=== PATIENT | female | born 1935 | race Caucasian/White ===

== ENCOUNTER → 2016-06-15 | Outpatient (CLI) | payer MEDICARE | END | disposition home or self-care (01) | LOC: LABWHC1 09:29 | PROVIDERS: ATTEND Psychiatry & Neurology Neurology | DX: G90.09 Other idiopathic peripheral autonomic neuropathy (principal) | CPT/HCPCS: 36415 ==

== ENCOUNTER → 2020-04-28 | Outpatient (CLI) | payer MEDICARE ==
--- NOTE | 2020-04-28 10:52 | CT ---
EXAMINATION TYPE: CT abdomen pelvis wo con DATE OF EXAM: 04/28/2020 HISTORY: low left side back pain CT DLP: 635 mGycm. Automated Exposure Control for Dose Reduction was Utilized. TECHNIQUE: CT scan of the abdomen and pelvis is performed without oral or IV contrast. COMPARISON: NONE FINDINGS: Within the limitations of a non-contrast study, the following observations are made. LUNG BASES: Epicardial pacer wires are present. Calcification at level of mitral valve. LIVER/GB: Dependent small stones and/or gallbladder sludge. No surrounding inflammatory change PANCREAS: No significant abnormality is seen. SPLEEN: No significant abnormality is seen. ADRENALS: No significant abnormality is seen. KIDNEYS: Cortical thinning in both kidneys with few scattered small simple appearing thin-walled cyst . Findings consistent with product of chronic medical renal disease. BOWEL: Small sized hiatal hernia. Prominent diverticulosis in the sigmoid colon with few additional s cattered colonic diverticula. There is wandering cecum into the anterior right mid abdomen terminal i leum noted coronal image 25 and axial image 56. No suspicious small or large bowel dilatation. GENITAL ORGANS: Scattered bilateral pelvic phleboliths. LYMPH NODES: No greater than 1cm abdominal or pelvic lymph nodes are appreciated. OSSEOUS STRUCTURES: Severe narrowing with subchondral cystic change and spurring at the pubic symphys is. Moderate narrowing and [id number] spurring of both hip joints. Demineralization is present. Exaggerated lumbar lordosis. Multilevel facet arthropathy greatest in the mid to lower lumbar spine. Greatest degree of spinal canal at the L4-L5 level due to disc herniation and facet arthropathy axia l image 64. OTHER: Mild to moderate calcified plaque of the aorta extends into branch vessels. IMPRESSION: Exaggerated lumbar lordosis with multilevel degenerative changes greatest at L4-L5 level. Other findings as noted above.
== END | disposition home or self-care (01) ==
LOC: RADCTMAIN 09:53
PROVIDERS: ATTEND Family Medicine
DX: N28.1 Cyst of kidney, acquired (principal); K44.9 Diaphragmatic hernia without obstruction or gangrene; K57.30 Diverticulosis of large intestine without perforation or abscess without bleeding; N28.89 Other specified disorders of kidney and ureter; I87.8 Other specified disorders of veins
CPT/HCPCS: 74176

== ENCOUNTER → 2020-11-05 | Outpatient (CLI) | payer MEDICARE ==
[2020-11-05 21:42] LABS: Hemoglobin A1C 4.8 % (4.0-6.0)
[2020-11-05 22:19] LABS: Protein, Total 6.1 g/dL (6.2-8.2)
[2020-11-09 11:16] LABS: Albumin 3.76 g/dL (3.80-4.90); Gamma Globulin 0.84 g/dL (0.70-1.50)
== END | disposition home or self-care (01) ==
LOC: LABWHC1 13:08
PROVIDERS: ATTEND Psychiatry & Neurology Neurology
DX: G62.9 Polyneuropathy, unspecified (principal); E16.2 Hypoglycemia, unspecified; Z79.899 Other long term (current) drug therapy
CPT/HCPCS: 36415; 83036; 84165; 86334

== ENCOUNTER 2020-11-10 10:23 | Inpatient (IN) | payer MEDICARE ==
[2020-11-10] MEDS ORDERED: ACETAMINOPHEN TAB 500 MG TAB PO STA (11:20)
[2020-11-10] MEDS ORDERED: LIDOCAINE 5% PATCH TOPICAL STA (11:22)
--- NOTE | 2020-11-10 11:36 | ED ---
Recheck HPI - General Chief Complaint: Recheck/Abnormal Lab/Rx Stated Complaint: elevated BP, Back pain Time Seen by Provider: 11/10/20 10:59 Source: patient Mode of arrival: ambulatory Limitations: no limitations - History of Present Illness Initial Comments: Patient is a 85-year-old female with past medical history remarkable for GERD, hyperlipidemia, aortic valve replacement who presents emergency department complaining of a 3 day history of worsening mid back pain between the shoulder blades with associate worsening hypertension. She describes the pain as a sharp sensation and has some radiculopathy around bilateral ribs. She states that over the last week she has been getting in and out of the truck that her children have brought as a visiting and lifting herself in. She associates the pain is possibly from that. She states the pain is worse with any form of movement or with pressure on her back. She is attempted take Tylenol to help with the pain with minimal relief. She last took Tylenol yesterday. She has any abdominal pain, nausea, vomiting she has no urinary complaints. She denies any weakness, numbness. She still able to ambulate. As a complication of her aortic valve replacement, she still has an incompletely healed sternum per patient's daughter and patient. She is no prior history of blood pressure. She has noticed over the last 2 days and the blood pressure has been elevated, and today it is the worst it has been. She also states she is in a significant amount of pain and states that this may be because of her elevated blood pressure this time. States this is not occurred before. She is no history of heart disease otherwise. She has any shortness of breath, fevers, chills, cough. She denies any lightheadedness or blurry vision. Patient presents after being sent by her PCP for evaluation of her new onset hypertension as well as mid back pain. - Related Data Home Medications Medication Instructions Recorded Confirmed Acetaminophen Tab [Tylenol] 650 mg PO Q6H PRN 11/10/20 11/10/20 Aspirin EC [Ecotrin Low Dose] 81 mg PO HS 11/10/20 11/10/20 Calcium Carbonate [Calcium] 600 mg PO HS 11/10/20 11/10/20 Cholecalciferol [Vitamin D3 (25 50 mcg PO HS 11/10/20 11/10/20 Mcg = 1000 Iu)] Docusate [Colace] 100 mg PO DAILY PRN 11/10/20 11/10/20 Fish Oil/Dha/Epa [Fish Oil 1,200 1 cap PO DAILY 11/10/20 11/10/20 mg Fish Oil] Gabapentin 600 mg PO HS 11/10/20 11/10/20 Gabapentin [Neurontin] 300 mg PO DAILY 11/10/20 11/10/20 Glucosam/Al-Msm1/C/Kenny/Bosw 1 tab PO DAILY 11/10/20 11/10/20 [Glucosamine-Chondroitin Tablet] Mirabegron [Myrbetriq] 25 mg PO DAILY 11/10/20 11/10/20 Multivit-Min/FA/Lycopen/Lutein 1 tab PO DAILY 11/10/20 11/10/20 [Centrum Silver Tablet] Omeprazole 20 mg PO DAILY 11/10/20 11/10/20 Polyethylene Glycol 3350 [Clearlax] 17 gm PO DAILY PRN 11/10/20 11/10/20 Simvastatin [Zocor] 20 mg PO HS 11/10/20 11/10/20 Vision Shield 1 tab PO BID 11/10/20 11/10/20 Vitamin B Complex 1 cap PO DAILY 11/10/20 11/10/20 Allergies Allergy/AdvReac Type Severity Reaction Status Date / Time Penicillins Allergy Rash/Hives Verified 11/10/20 12:06 Sulfa (Sulfonamide Allergy Rash/Hives Verified 11/10/20 12:06 Antibiotics) cortisone AdvReac flushing Verified 11/10/20 12:06 ibuprofen [From Motrin] AdvReac Nausea & Verified 11/10/20 12:06 Vomiting Review of Systems ROS Statement: Those systems with pertinent positive or pertinent negative responses have been documented in the HPI. Review of Systems: CONST: Denies fever EYES: Denies blurry vision ENT: Denies nasal congestion C/V: Denies Chest pain RESP: Denies shortness of breath GI: Denies abdominal pain : Denies dysuria SKIN: Denies rash. MSK: Endorses back pain, rib pain NEURO: Denies headache ROS Other: All systems not noted in ROS Statement are negative. Past Medical History Past Medical History: Hyperlipidemia History of Any Multi-Drug Resistant Organisms: None Reported Additional Past Surgical History / Comment(s): aortic valve replacement Past Psychological History: No Psychological Hx Reported Smoking Status: Never smoker Past Alcohol Use History: None Reported Past Drug Use History: None Reported General Exam - General Exam Comments Initial Comments: Constitutional: Blood pressure was 197/81, pulse was 71, respirations were 18, pulse oximetry was 97% on room air, temperature was 97.9. General: Appears in moderate distress secondary to mid back pain. HEAD: Normal with no signs of head trauma. EYES: PERRLA, EOMI, conjunctiva normal, no discharge. ENT: Hearing grossly intact, normal oropharynx. RESPIRATORY: Clear breath sounds bilaterally. No wheezes, rales, or rhonchi. C/V: Regular rate and rhythm. S1 and S2 auscultated, no edema, peripheral pulses 2+ and intact throughout and symmetric. ABD: Abd is soft, nontender, nondistended EXT: Normal range of motion of all 4 extremities. No obvious deformity. Patient does have some mid thoracic midline tenderness to palpation with some radicular symptoms around the ribs to the midaxillary line bilaterally. SKIN: No rashes or lesions observed on exposed skin. NEURO: Alert and oriented 4. No focal sensory or strength deficits. Cranial nerves 2 through 12 are intact. Limitations: no limitations Course Vital Signs 11/10/20 11/10/20 11/10/20 10:26 11:29 12:49 Temperature 97.9 F Pulse Rate 71 61 58 L Respiratory 18 18 18 Rate Blood Pressure 197/81 177/89 172/65 O2 Sat by Pulse 97 99 97 Oximetry 11/10/20 11/10/20 11/10/20 14:00 15:12 17:47 Temperature Pulse Rate 53 L 56 L 61 Respiratory 16 18 18 Rate Blood Pressure 161/54 146/63 156/66 O2 Sat by Pulse 97 100 95 Oximetry Medical Decision Making - Medical Decision Making Based on the patient's presentation and physical exam, I'm concerned for possible cardiac cause for her current symptoms, particularly an aortic di ssection. The patient is presenting with severe mid back pain with hypertension. She is uncertain if the hypertension resolved without back pain or prefaced it. Therefore we will obtain a cardiac workup including his quads, troponin, EKG and chest x-ray. We'll also obtain a urinalysis. We will obtain CT imaging of the aorta in the thorax and abdomen with runoff with concern for dissection, as well as reconstituted thoracic CT images without contrast. She will be connected to continuous cardiac monitoring while here in the emergency department. She requested that we attempt to control her pain per her blood pressure she has no history of hypertension in the past. I believe this is re asonable as this also intra-articular optic component to her pain could be musculoskeletal secondary to her recent exertions getting in and out of the family's vehicle. Therefore we'll provide her with lidocaine patch as well as Tylenol, and address her hypertension if it persists. She was in agreement with plan. EKG had no acute sensory ischemia was relatively unremarkable with a normal sinus rhythm and normal intervals. Patient's laboratory studies were remarkable for a normal troponin. Patient's urinalysis did reveal a contaminated catch. Laboratory studies otherwise unremarkable. Patient's chest x-ray revealed no acute cardiopulmonary process. Patient's thoracic spine CT revealed a mild superior endplate compression fracture T9 with small surrounding paraspinal hematoma. No evidence of bony retropulsion or instability. Patient's CTA thorax, abdomen, pelvis revealed no acute aortic aneurysm or dissection. I contacted orthopedics director of environmental services and spoke with the PA director of environmental services regarding the patient's imaging. He spoke with a spine doctor who stated the patient is stable for follow-up in clinic and that there will be no acute intervention at this time. They recommended a TLSO brace. On reevaluation the patient states that her pain is under control when she does not move. I did inform her the results of her laboratory studies and imaging. I explained to her that due to her age as well as difficulty moving around at this time, I'll leave it up to her whether or not she would like to remain in the hospital overnight until she can secure her brace. The patient discussed at great length with family regarding admission. In the meantime, I did provide the patient's daughter with a prescription for a TLSO brace which she took to [facility] to attempt to fill. However it will not be ready until tomorrow. After a lengthy discussion, the patient and her family decided that the specimen patient to remain overnight in observation admission for pain control. I was in agreement with this plan. Patient's PCP is Dr. Stanton who admits to [facility]. I spoke with the on-call physician over the phone who agreed to accept the patient to observation for pain control. Patient will therefore be admitted in fair condition for pain control for her T9 fracture. - Lab Data Result diagrams: 11/10/20 11:38 11/10/20 11:38 Lab Results 11/10/20 11/10/20 11/10/20 Range/Units 11:38 11:38 11:38 WBC 5.3 (3.8-10.6) k/uL RBC 4.05 (3.80-5.40) m/uL Hgb 12.7 (11.4-16.0) gm/dL Hct 35.9 (34.0-46.0) % MCV 88.6 (80.0-100.0) fL MCH 31.4 (25.0-35.0) pg MCHC 35.5 (31.0-37.0) g/dL RDW 13.2 (11.5-15.5) % Plt Count 194 (150-450) k/uL MPV 7.3 Neutrophils % 71 % Lymphocytes % 18 % Monocytes % 6 % Eosinophils % 3 % Basophils % 0 % Neutrophils # 3.7 (1.3-7.7) k/uL Lymphocytes # 1.0 (1.0-4.8) k/uL Monocytes # 0.3 (0-1.0) k/uL Eosinophils # 0.2 (0-0.7) k/uL Basophils # 0.0 (0-0.2) k/uL PT 9.9 (9.0-12.0) sec INR 0.9 (<1.2) APTT 23.4 (22.0-30.0) sec Sodium 140 (137-145) mmol/L Potassium 4.7 (3.5-5.1) mmol/L Chloride 107 (98-107) mmol/L Carbon Dioxide 28 (22-30) mmol/L Anion Gap 5 mmol/L BUN 23 H (7-17) mg/dL Creatinine 0.59 (0.52-1.04) mg/dL Est GFR (CKD-EPI)AfAm >90 (>60 ml/min/1.73 sqM) Est GFR (CKD-EPI)NonAf 85 (>60 ml/min/1.73 sqM) Glucose 98 (74-99) mg/dL Calcium 9.4 (8.4-10.2) mg/dL Magnesium 2.1 (1.6-2.3) mg/dL Total Bilirubin 0.6 (0.2-1.3) mg/dL AST 37 H (14-36) U/L ALT 17 (4-34) U/L Alkaline Phosphatase 57 (38-126) U/L Troponin I (0.000-0.034) ng/mL Total Protein 6.5 (6.3-8.2) g/dL Albumin 3.9 (3.5-5.0) g/dL Urine Color Urine Appearance (Clear) Urine pH (5.0-8.0) Ur Specific [place] (1.001-1.035) Urine Protein (Negative) Urine Glucose (UA) (Negative) Urine Ketones (Negative) Urine Blood (Negative) Urine Nitrite (Negative) Urine Bilirubin (Negative) Urine Urobilinogen (<2.0) mg/dL Ur Leukocyte Esterase (Negative) Urine RBC (0-5) /hpf Urine WBC (0-5) /hpf Ur Squamous Epith Cells (0-4) /hpf 11/10/20 11/10/20 Range/Units 11:38 11:50 WBC (3.8-10.6) k/uL RBC (3.80-5.40) m/uL Hgb (11.4-16.0) gm/dL Hct (34.0-46.0) % MCV (80.0-100.0) fL MCH (25.0-35.0) pg MCHC (31.0-37.0) g/dL RDW (11.5-15.5) % Plt Count (150-450) k/uL MPV Neutrophils % % Lymphocytes % % Monocytes % % Eosinophils % % Basophils % % Neutrophils # (1.3-7.7) k/uL Lymphocytes # (1.0-4.8) k/uL Monocytes # (0-1.0) k/uL Eosinophils # (0-0.7) k/uL Basophils # (0-0.2) k/uL PT (9.0-12.0) sec INR (<1.2) APTT (22.0-30.0) sec Sodium (137-145) mmol/L Potassium (3.5-5.1) mmol/L Chloride (98-107) mmol/L Carbon Dioxide (22-30) mmol/L Anion Gap mmol/L BUN (7-17) mg/dL Creatinine (0.52-1.04) mg/dL Est GFR (CKD-EPI)AfAm (>60 ml/min/1.73 sqM) Est GFR (CKD-EPI)NonAf (>60 ml/min/1.73 sqM) Glucose (74-99) mg/dL Calcium (8.4-10.2) mg/dL Magnesium (1.6-2.3) mg/dL Total Bilirubin (0.2-1.3) mg/dL AST (14-36) U/L ALT (4-34) U/L Alkaline Phosphatase (38-126) U/L Troponin I <0.012 (0.000-0.034) ng/mL Total Protein (6.3-8.2) g/dL Albumin (3.5-5.0) g/dL Urine Color Yellow Urine Appearance Clear (Clear) Urine pH 8.0 (5.0-8.0) Ur Specific [place] 1.016 (1.001-1.035) Urine Protein Negative (Negative) Urine Glucose (UA) Negative (Negative) Urine Ketones Negative (Negative) Urine Blood Negative (Negative) Urine Nitrite Negative (Negative) Urine Bilirubin Negative (Negative) Urine Urobilinogen <2.0 (<2.0) mg/dL Ur Leukocyte Esterase Small H (Negative) Urine RBC 2 (0-5) /hpf Urine WBC 8 H (0-5) /hpf Ur Squamous Epith Cells 1 (0-4) /hpf - EKG Data -: EKG Interpreted by Me EKG Comments: 12-lead Electrocardiogram Interpretation Note EKG was reviewed and interpreted by myself. 12-lead ECG performed at 1037 and was interpreted by me at 1140 and was provided to me by nursing and is interpreted by me as revealing normal sinus rhythm at a rate of 63 beats per minute. [place] is normal. WA intervals 140 ms, QRS duration 74 ms, QTc is 437 ms.. There are isolated isoelectric T waves in III, however otherwise ST segment and T waves are unremarkable.. R wave progression across the precordium was satisfactory. By my interpretation this EKG is non-diagnostic for acute ischemia. Disposition Clinical Impression: T9 vertebral fracture Disposition: ADMITTED IP TO THIS [facility] Condition: Fair Referrals: Yessy Stanton MD [Primary Care Provider] - 1-2 days Mario Jim DO [Doctor of Osteopathic Medicine] - 1-2 days Decision to Admit Reason: Admit from [facility]
[2020-11-10 12:11] LABS: Appearance,Urine Clear (Clear); Bilirubin,Urine Negative (Negative); Blood,Urine Negative (Negative); Color,Urine Yellow; Glucose,Urine (UA) Negative (Negative); Ketones,Urine Negative (Negative); Leukocyte Esterase,Urine Small (Negative); Nitrite,Urine Negative (Negative); Protein,Urine Negative (Negative); RBC,Urine 2 /hpf (0-5); Specific Gravity,Urine 1.016 (1.001-1.035); Squamous Epithelial Cell,Urine 1 /hpf (0-4); Urobilinogen,Urine <2.0 mg/dL (<2.0); WBC,Urine 8 /hpf (0-5)
[2020-11-10 12:17] LABS: INR 0.9 (<1.2); Partial Thromboplastin Time 23.4 sec (22.0-30.0); Prothrombin Time 9.9 sec (9.0-12.0)
[2020-11-10 12:22] LABS: Basophils % (A) 0 %; Eosinophils # (A) 0.2 k/uL (0-0.7); Eosinophils % (A) 3 %; HCT 35.9 % (34.0-46.0); HGB 12.7 gm/dL (11.4-16.0); Lymphocytes % (A) 18 %; MCH 31.4 pg (25.0-35.0); MCHC 35.5 g/dL (31.0-37.0); MCV 88.6 fL (80.0-100.0); Mean Platelet Volume 7.3; Monocytes # (A) 0.3 k/uL (0-1.0); Monocytes % (A) 6 %; Neutrophils # (A) 3.7 k/uL (1.3-7.7); Neutrophils % (A) 71 %; Platelet Count 194 k/uL (150-450); RBC 4.05 m/uL (3.80-5.40); RDW 13.2 % (11.5-15.5); WBC 5.3 k/uL (3.8-10.6)
[2020-11-10 12:23] LABS: ALT 17 U/L (4-34); African American GFR (CKD) >90 (>60 ml/min/1.73 sqM); Albumin 3.9 g/dL (3.5-5.0); Anion Gap 5 mmol/L; Blood Urea Nitrogen 23 mg/dL (7-17); Calcium 9.4 mg/dL (8.4-10.2); Carbon Dioxide 28 mmol/L (22-30); Chloride 107 mmol/L (98-107); Glucose 98 mg/dL (74-99); Non-African American GFR(CKD) 85 (>60 ml/min/1.73 sqM); Sodium 140 mmol/L (137-145); Total Bilirubin 0.6 mg/dL (0.2-1.3); Total Protein 6.5 g/dL (6.3-8.2)
[2020-11-10 12:27] LABS: AST 37 U/L (14-36); Magnesium 2.1 mg/dL (1.6-2.3); Potassium 4.7 mmol/L (3.5-5.1)
[2020-11-10 12:28] LABS: Alkaline Phosphatase 57 U/L (38-126)
--- NOTE | 2020-11-10 12:37 | XR ---
EXAMINATION TYPE: XR chest 1V portable DATE OF EXAM: 11/10/2020 COMPARISON: NONE HISTORY: Chest pain TECHNIQUE: Single frontal view of the chest is obtained. FINDINGS: There is no focal air space opacity, pleural effusion, or pneumothorax seen. The cardiac silhouette size is within normal limits. The osseous structures are intact. IMPRESSION: No acute process.
--- NOTE | 2020-11-10 12:41 | CT ---
EXAMINATION TYPE: CT thoracic spine wo con DATE OF EXAM: 11/10/2020 COMPARISON: None HISTORY: thoracic spine pain CT DLP: 1119.1 mGycm Automated exposure control for dose reduction was used. Unenhanced CT of the thoracic spine was submi tted. Bone and soft tissue window settings are reviewed. FINDINGS: There is minimal loss of vertebral body height involving the superior endplate of T9 with a small rory rounding paraspinal hematoma compatible with an acute mild superior endplate compression fracture. No evidence for instability. No additional fractures are seen. Mild degenerative disc space narrowing i s seen throughout. Mild ventral spondylosis. IMPRESSION: MILD SUPERIOR ENDPLATE COMPRESSION FRACTURE OF T9 WITH SMALL SURROUNDING PARASPINAL HEMATOMA. NO EVID ENCE FOR BONY RETROPULSION OR INSTABILITY.
--- NOTE | 2020-11-10 13:00 | CT ---
EXAMINATION TYPE: CT angio thor/abd pel aorta DATE OF EXAM: 11/10/2020 COMPARISON: None HISTORY: thoracic spine pain, suspect aortic dissection CT DLP: 1119.1 mGycm CONTRAST: CTA thoracic and abdominal aorta with 3-D reconstruction is performed and without and with IV Contras t, patient injected with 100 mL of Isovue 370. Contrast CTA of the thoracic and abdominal aorta was performed from the lung apex through the base of the pelvis. 3-D reconstruction imaging obtained at a separate workstation. CT Chest: THORACIC AORTA: There is no evidence for aneurysm. No dissection or mediastinal hematoma. Mild ath eromatous changes are seen. LUNGS: The lungs are clear and free of infiltrate or atelectasis. No pulmonary nodule or mass is det ected. No pleural effusion or CT evidence of interstitial lung disease. MEDIASTINUM: There is evidence of thyroid goiter with substernal extension. The heart is not enlarged . No evidence for mediastinal mass or adenopathy. HILAR STRUCTURES: No evidence for mass. No hilar adenopathy is appreciated. OTHER: No significant abnormality. CONTRAST CT ABDOMEN AND PELVIS ABDOMENAL AORTA: No evidence for abdominal aortic aneurysm. No dissection. Iliac vessels are symmet mindy and patent. LIVER/GB- No significant abnormality is seen. Small gallstones noted. PANCREAS- No significant abnormality is seen. SPLEEN- No significant abnormality is seen. ADRENALS- No significant abnormality is seen. KIDNEYS/BLADDER- No significant abnormality is seen. Renal cystic changes seen. BOWEL- No Significant abnormality GENITAL ORGANS: No gross abnormality seen. Pessary is in place. LYMPH NODES- No greater than 1cm abdominal or pelvic lymph nodes areappreciated. OSSEOUS STRUCTURES- No significant abnormality is seen. OTHER- No significant abnormality is seen. IMPRESSION- Atheromatous changes of the aorta without evidence for aneurysm or dissection.
[2020-11-10] MEDS ORDERED: ONDANSETRON 4 MG/2 ML VIAL IVP PRN (17:29)
[2020-11-10] MEDS ORDERED: HYDROcodone/APAP 5-325MG 1 EACH TAB PO PRN (17:29)
[2020-11-10] MEDS ORDERED: DOCUSATE 100 MG CAP PO PRN (17:35)
[2020-11-10] MEDS: ACETAMINOPHEN TAB 325 MG TAB PO PRN (18:00)
[2020-11-10] MEDS ORDERED: polyethylene glycoL 3350 17 GM POWD.PACK PO PRN (18:01)
--- NOTE | 2020-11-10 18:11 | P.HPIM ---
History of Present Illness H&P Date: 11/10/20 Chief Complaint: Back pain This is a 85-year-old female with past medical history noted below who presented to the emergency room with mid back pain. Patient said that her symptoms started few days ago and pain is mostly in between her shoulder blades radiating to the right. Patient said that the pain is sharp and started 3 days ago when she was trying to reach her arm up to get into her daughter truck. Patient denies any fall or trauma. No numbness or tingling anywhere. No weakness. She was brought into the emergency room for further evaluation. Patient said that she was monitoring her blood pressure at home and for the past few days her blood pressure is been slightly elevated. She does not take any blood pressure medications at home. No history of hypertension. Her daughter told me that she had a history of aortic valve replacement years ago. Patient was evaluated in the ER and will be placed on observation for further management of her medical p roblems noted below. Review of Systems Review of system: 14 points review of systems were obtained and were negative except to what were mentioned in the HPI. Past Medical History Past Medical History: Hyperlipidemia History of Any Multi-Drug Resistant Organisms: None Reported Additional Past Surgical History / Comment(s): aortic valve replacement Past Psychological History: No Psychological Hx Reported Smoking Status: Never smoker Past Alcohol Use History: None Reported Past Drug Use History: None Reported Medications and Allergies Home Medications Medication Instructions Recorded Confirmed Type Acetaminophen Tab [Tylenol] 650 mg PO Q6H PRN 11/10/20 11/10/20 History Aspirin EC [Ecotrin Low Dose] 81 mg PO HS 11/10/20 11/10/20 History Calcium Carbonate [Calcium] 600 mg PO HS 11/10/20 11/10/20 History Cholecalciferol [Vitamin D3 (25 50 mcg PO HS 11/10/20 11/10/20 History Mcg = 1000 Iu)] Docusate [Colace] 100 mg PO DAILY PRN 11/10/20 11/10/20 History Fish Oil/Dha/Epa [Fish Oil 1,200 1 cap PO DAILY 11/10/20 11/10/20 History mg Fish Oil] Gabapentin 600 mg PO HS 11/10/20 11/10/20 History Gabapentin [Neurontin] 300 mg PO DAILY 11/10/20 11/10/20 History Glucosam/Al-Msm1/C/Kenny/Bosw 1 tab PO DAILY 11/10/20 11/10/20 History [Glucosamine-Chondroitin Tablet] Mirabegron [Myrbetriq] 25 mg PO DAILY 11/10/20 11/10/20 History Multivit-Min/FA/Lycopen/Lutein 1 tab PO DAILY 11/10/20 11/10/20 History [Centrum Silver Tablet] Omeprazole 20 mg PO DAILY 11/10/20 11/10/20 History Polyethylene Glycol 3350 [Clearlax] 17 gm PO DAILY PRN 11/10/20 11/10/20 History Simvastatin [Zocor] 20 mg PO HS 11/10/20 11/10/20 History Vision Shield 1 tab PO BID 11/10/20 11/10/20 History Vitamin B Complex 1 cap PO DAILY 11/10/20 11/10/20 History Allergies Allergy/AdvReac Type Severity Reaction Status Date / Time Penicillins Allergy Rash/Hives Verified 11/10/20 12:06 Sulfa (Sulfonamide Allergy Rash/Hives Verified 11/10/20 12:06 Antibiotics) cortisone AdvReac flushing Verified 11/10/20 12:06 ibuprofen [From Motrin] AdvReac Nausea & Verified 11/10/20 12:06 Vomiting Physical Exam Vitals: Vital Signs Temp Pulse Resp BP Pulse Ox 11/10/20 17:47 61 18 156/66 95 11/10/20 15:12 56 L 18 146/63 100 11/10/20 14:00 53 L 16 161/54 97 11/10/20 12:49 58 L 18 172/65 97 11/10/20 11:29 61 18 177/89 99 11/10/20 10:26 97.9 F 71 18 197/81 97 Intake and Output 11/10/20 11/10/20 11/10/20 06:59 14:59 22:59 Other: Weight 62.142 kg General: The patient is awake and alert, in no distress Eye: there is normal conjunctiva bilaterally. Neck: The neck is supple, there is no JVD. Cardiovascular: Normal S1-S2, no S3-S4, no murmurs. Respiratory: Lungs clear to auscultation bilaterally Gastrointestinal: Abdomen is soft, nontender Musculoskeletal: There is no pedal edema. Neurological:. Speech is normal. Skin: Skin is warm and dry Results CBC & Chem 7: 11/10/20 11:38 11/10/20 11:38 Labs: Abnormal Lab Results - Last 24 Hours (Table) 11/10/20 11/10/20 Range/Units 11:38 11:50 BUN 23 H (7-17) mg/dL AST 37 H (14-36) U/L Ur Leukocyte Esterase Small H (Negative) Urine WBC 8 H (0-5) /hpf Assessment and Plan Assessment: 1. Compression fraction of T-9 with a small surrounding paraspinal hematoma, case discussed with orthopedic surgery over the phone by ER physician. Plan to follow up outpatient. TLSO brace ordered. Pain well controlled with Tylenol. 2. Elevated blood pressure, most likely secondary to pain. We will continue to monitor closely. 3. Chronic medical problems: History of aortic valve replacement, mild dementia/cognitive impairment, GERD Patient will be placed in observation awaiting brace fitting. She is not comfortable to go home. I will consult PT/OT. Anticipate discharge tomorrow.
[2020-11-10] MEDS ORDERED: GABAPENTIN 300 MG CAP PO SCH (21:00)
[2020-11-10] MEDS ORDERED: ASPIRIN 81 MG PO SCH (21:00)
[2020-11-10] MEDS ORDERED: ATORVASTATIN 10 MG TAB PO SCH (21:00)
[2020-11-10] MEDS: HEPARIN SODIUM,PORCINE/PF 5,000 UNIT/0.5 ML SYRINGE SQ SCH (21:49)
[2020-11-11] MEDS: ACETAMINOPHEN TAB 325 MG TAB PO PRN ×3 (01:43→14:10)
[2020-11-11] MEDS ORDERED: PANTOPRAZOLE 40 MG TABLET PO SCH (07:30)
[2020-11-11 07:53] VITALS: RESP 16
[2020-11-11] MEDS: HEPARIN SODIUM,PORCINE/PF 5,000 UNIT/0.5 ML SYRINGE SQ SCH (08:02)
[2020-11-11] MEDS ORDERED: Mirabegron [Myrbetriq] PO SCH (09:00)
[2020-11-11] MEDS ORDERED: GABAPENTIN 300 MG CAP PO SCH (09:00)
[2020-11-11] MEDS ORDERED: LIDOCAINE 5% PATCH TOPICAL SCH (11:00)
--- NOTE | 2020-11-11 13:52 | P.DS ---
Providers Date of admission: 11/10/20 17:59 Expected date of discharge: 11/11/20 Attending physician: Curtis Valero Primary care physician: Yessy Stanton [facility] Course: This is a 85-year-old female with past medical history noted below who presented to the emergency room with mid back pain. Patient was evaluated in the ER and placed on observation for further management of her medical problems noted below. 1. Compression fraction of T-9 with a small surrounding paraspinal hematoma, case discussed with orthopedic surgery over the phone by ER physician. Plan to follow up outpatient. TLSO brace ordered. Pain well controlled with Tylenol. 2. Elevated blood pressure on presentation now back to normal range: most likely secondary to pain. 3. Chronic medical problems: History of aortic valve replacement, mild dementia/cognitive impairment, GERD Patient will be discharged home in a stable condition. She will follow-up with orthopedic surgery as directed. Patient Condition at Discharge: Fair Plan - Discharge Summary Discharge Rx Participant: No New Discharge Prescriptions: Continue Simvastatin [Zocor] 20 mg PO HS Cholecalciferol [Vitamin D3 (25 Mcg = 1000 Iu)] 50 mcg PO HS Calcium Carbonate [Calcium] 600 mg PO HS Vitamin B Complex 1 cap PO DAILY Glucosam/Al-Msm1/C/Kenny/Bosw [Glucosamine-Chondroitin Tablet] 1 tab PO DAILY Fish Oil/Dha/Epa [Fish Oil 1,200 mg Fish Oil] 1 cap PO DAILY Vision Shield 1 tab PO BID Gabapentin [Neurontin] 300 mg PO DAILY Acetaminophen Tab [Tylenol] 650 mg PO Q6H PRN PRN Reason: Fever And/ Or Pain Polyethylene Glycol 3350 [Clearlax] 17 gm PO DAILY PRN PRN Reason: Constipation Docusate [Colace] 100 mg PO DAILY PRN PRN Reason: Constipation Aspirin EC [Ecotrin Low Dose] 81 mg PO HS Multivit-Min/FA/Lycopen/Lutein [Centrum Silver Tablet] 1 tab PO DAILY Omeprazole 20 mg PO DAILY Gabapentin 600 mg PO HS Mirabegron [Myrbetriq] 25 mg PO DAILY Discharge Medication List Acetaminophen Tab [Tylenol] 650 mg PO Q6H PRN 11/10/20 [History] Aspirin EC [Ecotrin Low Dose] 81 mg PO HS 11/10/20 [History] Calcium Carbonate [Calcium] 600 mg PO HS 11/10/20 [History] Cholecalciferol [Vitamin D3 (25 Mcg = 1000 Iu)] 50 mcg PO HS 11/10/20 [History] Docusate [Colace] 100 mg PO DAILY PRN 11/10/20 [History] Fish Oil/Dha/Epa [Fish Oil 1,200 mg Fish Oil] 1 cap PO DAILY 11/10/20 [History] Gabapentin 600 mg PO HS 11/10/20 [History] Gabapentin [Neurontin] 300 mg PO DAILY 11/10/20 [History] Glucosam/Al-Msm1/C/Kenny/Bosw [Glucosamine-Chondroitin Tablet] 1 tab PO DAILY 11/10/20 [History] Mirabegron [Myrbetriq] 25 mg PO DAILY 11/10/20 [History] Multivit-Min/FA/Lycopen/Lutein [Centrum Silver Tablet] 1 tab PO DAILY 11/10/20 [History] Omeprazole 20 mg PO DAILY 11/10/20 [History] Polyethylene Glycol 3350 [Clearlax] 17 gm PO DAILY PRN 11/10/20 [History] Simvastatin [Zocor] 20 mg PO HS 11/10/20 [History] Vision Shield 1 tab PO BID 11/10/20 [History] Vitamin B Complex 1 cap PO DAILY 11/10/20 [History] Follow up Appointment(s)/Referral(s): Mario Jim DO [Doctor of Osteopathic Medicine] - 1-2 days Yessy Stanton MD [Primary Care Provider] - 1-2 days Discharge Disposition: HOME SELF-CARE
[2020-11-11 14:36] VITALS: BP 151/77; PULSE 71; TEMP 98.1
== END 2020-11-11 17:39 | disposition home or self-care (01) | DRG 544 ==
LOC: EC 10:23 → 4SSUR 17:59
PROVIDERS: ADMIT Internal Medicine; ATTEND Internal Medicine
DX: M48.54XA Collapsed vertebra, not elsewhere classified, thoracic region, initial encounter for fracture (principal); E78.5 Hyperlipidemia, unspecified; I10 Essential (primary) hypertension; K21.9 Gastro-esophageal reflux disease without esophagitis; R41.89 Other symptoms and signs involving cognitive functions and awareness; Z95.2 Presence of prosthetic heart valve; Z79.899 Other long term (current) drug therapy; F03.90 Unspecified dementia, unspecified severity, without behavioral disturbance, psychotic disturbance, mood disturbance, and anxiety; M54.10 Radiculopathy, site unspecified; Z20.822 Contact with and (suspected) exposure to COVID-19
CPT/HCPCS: 36415; 71045; 71275; 72128; 74174; 80053; 81001; 83735; 84484; 85025; 85610; 85730; 87635; 93005; 94760; 99285

== ENCOUNTER → 2020-12-09 | Day surgery (SDC) | payer MEDICARE ==
[2020-12-08 12:05] VITALS: BMI 25.9
[~2020-12-09] MED LIST: ACETAMINOPHEN TAB 500 MG TAB PO PRN; BUPIVACAINE (PF) 0.5% 30 ML VIAL SQ ONE; LACTATED RINGERS 1,000 ML IV ONE; LIDOCAINE 1% INJ 10MG/ML (20 ML MDV) ONE; LIDOCAINE 1%-EPI 1:100,000 20 ML VIAL SQ ONE; ONDANSETRON 4 MG/2 ML VIAL IVP PRN; PROPOFOL 10 MG/ML 20 ML VIAL IV ONE; SUCCINYLCHOLINE CHLORIDE 100 MG/5 ML SYR IV ONE; ePHEDrine SULFATE/0.9% NACL/PF 50 MG/5 ML SYRINGE IV ONE; fentaNYL (PF) 50 MCG/ML 2 ML AMP ONE
--- NOTE | 2020-12-09 12:10 | P.HPOR ---
History of Present Illness H&P Date: 12/07/20 Chief Complaint: Back pain HPI: Pt presents for follow up on her T9 VCF. She is wearing TLSO. She continues to have a lot of pain when she is up and about. When she is seated her pain is better, but not completely gone. She states it is difficult to perform her ADLs secondary to her pain. She denies any f c/sob/cp. She denies any weakness in legs she denies any bowel or bladder issues. She continues to have pain with palpation of her back as well as when she rests on it. HISTORY: Subjective: This 85 year old female presents with mid back pain. 1 week ago she was getting in and out of a truck a lot and somewhat jumping to the ground. This caused a lot of jarring on her legs and back and she ended up having severe back pain after one of the jumps. She went to ED and was found to have a T9 VCF. She was treated in a TLSO and sent home. Since then she has been doing well. She states she still has back pain but that it is better that originally. She feels the brace helps her. She also has some rib pain around the same area. She is able to ambulate independenly. She states no bowel or bladder issues. No perineal numbness/tingling. The patients' past social, medical, family, surgical history, as well as review of systems, have been reviewed. Please refer to the Neurosurgery History and Physical form that has been scanned in to our electronic medical record system. Review of Systems 14 points review of systems completed and as stated in HPI, all other systems reviewed are negative. Past Medical History Past Medical History: Hyperlipidemia, Musculoskeletal Disorder Additional Past Medical History / Comment(s): aortic valve replacement (pig valve size 19), sinus drainage frequently, papilloma right sinus cavity, recent hospitalization due to compression fx. & elevated BP which was due to pain, also a rib fx. on right side History of Any Multi-Drug Resistant Organisms: None Reported Past Surgical History: Appendectomy, Cardiac Valve Replacement, Hernia Repair, Orthopedic Surgery, Tubal Ligation Additional Past Surgical History / Comment(s): aortic valve replacement 2017, lt knee, rt ankle x3, carpal tunnel bilateral wrists, sinus surg. x2 Past Anesthesia/Blood Transfusion Reactions: No Reported Reaction Smoking Status: Never smoker - Past Family History Father Additional Family Medical History / Comment(s): emphysema Mother Additional Family Medical History / Comment(s): alzheimers Medications and Allergies Home Medications Medication Instructions Recorded Confirmed Type Acetaminophen Tab [Tylenol] 650 mg PO Q6H PRN 11/10/20 12/08/20 History Aspirin EC [Ecotrin Low Dose] 81 mg PO HS 11/10/20 12/08/20 History Calcium Carbonate [Calcium] 600 mg PO HS 11/10/20 12/08/20 History Cholecalciferol [Vitamin D3 (25 50 mcg PO HS 11/10/20 12/08/20 History Mcg = 1000 Iu)] Fish Oil/Dha/Epa [Fish Oil 1,200 1 cap PO DAILY 11/10/20 12/08/20 History mg Fish Oil] Gabapentin 600 mg PO HS 11/10/20 12/08/20 History Gabapentin [Neurontin] 300 mg PO DAILY 11/10/20 12/08/20 History Glucosam/Al-Msm1/C/Kenny/Bosw 1 tab PO DAILY 11/10/20 12/08/20 History [Glucosamine-Chondroitin Tablet] Multivit-Min/FA/Lycopen/Lutein 1 tab PO DAILY 11/10/20 12/08/20 History [Centrum Silver Tablet] Omeprazole 20 mg PO DAILY 11/10/20 12/08/20 History Polyethylene Glycol 3350 [Clearlax] 17 gm PO DAILY PRN 11/10/20 12/08/20 History Simvastatin [Zocor] 20 mg PO HS 11/10/20 12/08/20 History Vision Shield 1 tab PO BID 11/10/20 12/08/20 History Vitamin B Complex 1 cap PO DAILY 11/10/20 12/08/20 History Lidocaine 5% Patch [Lidoderm 5% 1 patch TOPICAL DAILY #30 patch 11/11/20 12/08/20 Rx Patch] Allergies Allergy/AdvReac Type Severity Reaction Status Date / Time Penicillins Allergy Rash/Hives Verified 12/08/20 11:05 Sulfa (Sulfonamide Allergy Rash/Hives Verified 12/08/20 11:05 Antibiotics) cortisone AdvReac flushing Verified 12/08/20 11:05 ibuprofen [From Motrin] AdvReac Nausea & Verified 12/08/20 11:05 Vomiting Physical Examination Osteopathic Statement: *. No significant issues noted on an osteopathic structural exam other than those noted in the History and Physical/Consult. General: Awake, alert, appropriate for age, in no acute distress. HEENT: No unusual neck masses around region of lateral neck triangle, thyroid, supraclavicular groove Heart: Regular rate and rhythm, normal S1, S2 and no murmur/gallop. Lungs: Clear to auscultation bilaterally with no use of accessory muscles. Extremities: Skin warm and dry without acute lesions, coloration, temperature, skin intact, no tenderness or erythema Integument: Hairy patches: Absent Dorsal skin dimples: Absent Cafe au lait spots: Absent Palpation: Please see Pain drawing on Intake sheet for further detail. Midline spinal tenderness: yes lumbar E6 Paralumbar tenderness: No E6 Parathoracic tenderness: No E6 Buttocks tenderness: No E6 Special findings: She has positive ballotment over the T9 area and TTP of the paraspinal region. POSTURAL and MUSCULO-SKELETAL EVALUATION: Coronal Balance: Neutral Recumbent testing: Patient is able to lay flat on back Sagittal Balance: Neutral Shoulder Profile: level Pelvic Girdle: level Neck ROM: Unrestricted Lumbar ROM: Unrestricted Shoulder ROM: Symmetric in abduction, ER/IR Hip ROM: Symmetric in abduction, adduction, ER/IR Knee ROM: Symmetric and intact in Flexion / extension Hands: Normal Feet: Normal VASCULAR STATUS : LEFT RIGHT Wrist Pulses intact intact Pedal Pulses (Dors. pedis & post.tibialis) intact intact Color normal normal Edema Absent Absent NEUROLOGIC EXAMINATION: Mental Status: Awake and alert, fully oriented, with normal attention, concentration and memory, and fluent, appropriate speech. Cranial Nerves: I: Olfactory not tested. II: Visual acuity normal, no visual field deficit noted with confrontation. III,IV: Normal pupillary reflexes & intact extraocular movements without nystagmus. V,: Intact symmetrical facial sensation. VII: Intact symmetrical facial motor movement VIII: Hearing intact. IX,X: Intact gag, swallow, & normal voice. XI: Sternocleidomastoid, trapezius function intact. XII: Tongue midline with normal movements. L'hermitte's Sign: Negative / absent Spurling'Sign: Absent bilaterally. Cubital percussion test: Absent bilaterally. Chikis-Tinel sign - Carpal region: Absent bilaterally. Straight Leg Raising: Absent bilaterally. Crossed straight leg raise: negative MOTOR EXAM (0-5/5, N/T) STRENGTH RIGHT LEFT Shoulder Abd (not part of the BROOKE score) 5 5 Elbow Flexors 5 5 Elbow Extensor 5 5 Wrist Dorsiflexors 5 5 Finger Abductor 5 5 Research Program Internship 5 5 Hip Flexor (Not part of BROOKE Motor score) 5 5 Knee Flexor 5 5 Knee Extensor 5 5 Ankle dorsiflexor 5 5 Ankle plantarflexion 5 5 Extensor hallucis 5 5 REFLEXES(0-4/2, NT) RIGHT LEFT Upper Extremities 2 2 Lower Extremities 2 2 Pathological Reflexes RIGHT LEFT Garrett's Absent Absent Clonus Absent Absent # Indicates mechanical impairment Muscle appearance: Normal Rectal Tone: Deferred Sensory system (0-4, N/T) Test type RU GRACIELA RL LL Joint-Position 2 2 2 2 Vibration 2 2 2 2 Pain & LT sense 2 2 2 2 Dermatomal Deficit: none none none none Gait and Functional Evaluation: Ambulatory aids: Independent Romberg's test: Intact bilaterally Toe heel walk / heel-toe walk intact while maintaining satisfactory balance? yes Squatting/straightening w/o assistance to a min of 60 degree knee flexion? yes Single leg stance: intact Trendelenburg sign negative bilaterally Hand and finger dexterity intact bilaterally? yes Disdiadochokinesis examination negative bilaterally? yes Results CT of the thoracic and lumbar spine are reviewed and discussed demonstrates T9 vertebral compression fracture which is acute in nature there is 15-20% anterior wedging which is noted. There is no other fractures or dislocation noted there is acute kyphosis in this area. XRAY: Xray today of the T spine shows some interval progression of VCF deformity and wedging of T9, however not severe. Ct from the ED shows the original fracture which is an A2 type fracture. No other fractures or dislocations noted. Some kyphosis at the segment. No other fractures. New Xrays today show progression of the compression of T9 with increased wedging. There is about 20% height loss which has progressed from previous films. There is no evidence of instability. There area no other fractures noted. Osteoporosis/osteopenia noted. Assessment and Plan Assessment: 1.T9 VCF 2. Failed conservative measures Plan: 1.Schedule for T9 kyphoplasty due to progression of compression and continued pain Cont with TLSO at this time as well Surgical Procedure Risk Review Juanisjaswinder Ceja is a 85 year old female presenting for evaluation of sudden onset of Mid back pain after several impact activities cuasing a T9 VCF. It was my pleasure to have seen and examined Ms. Ceja. In our visit today we have had a chance to go over subjective complaints, physical examination findings and treatments, including the natural course history without intervention and various interventional options. The imaging demonstrates T9 VCF with interval progression of compression on xray since previous visit . On physical exam, Ms. Ceja demonstrates Continued back pain, ballotment and pain with ambulation . I explained to the patient that as her condition progresses it could cause Continued pain, progression of the compression and further issues related . At this time, based on the patients imaging and physical exam, I recommend surgery in the form or a: T9 kyphoplasty . I discussed the risk and benefits of this procedure at length with Ms. Ceja. The patient agreed to consider pursuing the procedure mentioned above. Plan: 1. T9 kyphoplasty 2. Follow up with PCP for surgical clearance 3. Review of surgical risks and benefits as well as an educational packet on the proposed surgical procedure. Risks: All surgical procedures come with inherent risks, including those related to positioning, anesthesia, intraoperative findings, and postoperative complications. It is important to understand that surgery does not come with any guarantee of a successful outcome as complications and adverse events are always possible. The patient was given a handout in office today discussing the surgical procedure and risks associated with the intervention, both of which were discussed with the patient. These risks include but are not limited to the following: ? Experiencing same, different or even worse symptoms in back, neck, arms, or legs compared to before surgery. ? Requiring further surgery or other forms of treatment presently or at some time in the future at same or other levels of the intended spine surgery. ? On an extreme but fortunately relatively rare basis severe complication such as blindness, stroke, heart attack, temporary and/or permanent nerve injury, paralysis, coma, or may occur, sometimes without known explanation. ? Surgical complications may include but are not limited to risk of infection, fluid accumulation in the surgical dissection site, including a seroma or hematoma, that requires additional surgery, wound drainage, bleeding, new numbness or weakness, vision changes/loss, spinal fluid leakage, non-healing and/or infected incision, headaches, difficulty or inability to swallow, hoarseness, hemopneumothorax, pneumothorax, impotence, retrograde ejaculation, vaginal dryness; injury to nerves, spinal cord, blood vessels, lymphatics or other vital organs (i.e., bowel injury, injury to the great vessels); heterotopic bone formation; complications related to the hardware such as screws, rods, cages including misplaced hardware, device failure, instrume ntation at the wrong spine level, hardware fracture/breakage, or hardware loosening; vertebral failure of the spinal column above or below the newly placed hardware; retained surgical instrumentations or devices and the need for further surgery. ? Medical risks of the planned spine surgery include but are not limited to generalized Infections to the whole body or local areas outside of the surgical site (sepsis), heart attack, bleeding, anaphylaxis, meningitis, seizure, epilepsy, hearing loss, burn sams, laceration of the head or other areas of the body, bruising, hypersensitivity of the skin, bladder over distension; allergic reaction; shoulder injury related to positioning; fat, blood and air clots to other areas of the body like heart, lungs, brain; failure of internal organs such as lungs, kidneys, liver and excessive bleeding. If blood transfusions are necessary, note that transfusions may cause intolerance reactions such as anaphylaxis or other complex reactions. Despite best efforts, the results of spine surgery might not heal in terms of bone, soft tissues such as skin, fascia, ligaments, and joints. Additionally, in order to achieve best possible results, spine surgery may be carried out beyond the initially planned levels and involve decompression, fusion including insertion of hardware at levels other than the original intended area of surgical interest change some portions of the procedure in order to ensure the best possible outcomes. With spine surgery and spinal fusion, there are different off label uses of instrumentation (devices, implants and hardware) as well as biological substances (bone morphogenic proteins, demineralized bone matrix) as well as using extra bone from allograft sources (i.e. cadaver bone) or autograft (iliac crest bone, ribs, or the spine itself). The patient has been given information about these practices and their inherent risks and benefits. [facility] Physician Assistants are medically trained surgical providers who function in the outpatient, inpatient, and operating room setting under the direct supervision of the attending surgeon.They assist in the operating room with direct supervision of the attending surgeons. The patient has had a chance to review all the listed information, has been given print outs detailing this information, and has had all his/her questions answered to their satisfaction. It was my pleasure to have seen and examined Ms. Ceja. In our visit today we have had a chance to go over my understanding of our patient's current condition, the natural course history without intervention and various interventional options. Questions were invited and answered, and the patient wishes to proceed as outlined above. I have seen and examined the patient for 25 minutes and we have spent more than 50% of the time in repeat and detailed counseling about the patient's condition, its natural course history with out and as much as can be predicted with surgery and re-review of various surgical treatment options. In conclusion,Ms. Ceja and her spouse/partner requested we proceed with the above suggested surgery and are willing to accept risks and limitations of the suggested surgery as nature of the disease process and our best attempts at treatment for the condition. Thank you again for allowing us to be part of your patient's care. Please don't hesitate to contact me if you have any further questions. Signed and authenticated by: Mario Sheaon [facility] [address] [facility], [address] [address] Time with Patient: Greater than 30
[2020-12-09 15:18] VITALS: TEMP 96.8
[2020-12-09 15:21] VITALS: RESP 16
[2020-12-09 16:08] VITALS: BP 151/82; PULSE 71
--- NOTE | 2020-12-09 16:20 | P.PN ---
Progress Note - Text Progress Note Date: 12/09/20 Postop: Patient seen and examined in the PACU's is doing well pain is controlled moving all 4 extremities appropriately no other issues vital signs are stable at this time incisions are clean and dry dressings dry no other issues. Patient will be discharged home when awake and stable per PACU staff and anesthesia staff when she is stable for home
--- NOTE | 2020-12-09 16:28 | FL ---
Fluoroscopy and limited spine HISTORY: Kyphoplasty 123 seconds fluoroscopy time supplied to the referring clinician. 15 intraoperative C-arm images doc ument the procedure. See dictated report from orthopedic surgery.
--- NOTE | 2020-12-09 16:39 | P.OP ---
Date of Procedure: 12/09/20 Preoperative Diagnosis: T9 vertebral compression fracture Interval increase compression Back pain Postoperative Diagnosis: T9 vertebral compression fracture Interval increase compression Back pain Procedure(s) Performed: 1. Needle localization of T9 vertebral body 2. Use of intraoperative fluoroscopy for position of T9 vertebral body T9 3. T9 kyphoplasty Implants: Sidney cement Anesthesia: YARELY Surgeon: Mario Jim Estimated Blood Loss (ml): 10 IV fluids (ml): 1,000 Urine output (ml): 0 Pathology: none sent Condition: stable Disposition: PACU Indications for Procedure: 85-year-old female presents with complaints of back pain. The patient was seen in the emergency department after some incidences when she was shopping and she continue to have this mid back pain which then became more severe she went to the emergency department where they got imaging showing a T9 vertebral compression fracture was acute. She follow-up in the office and we were treating her conservatively with the brace we saw her again in follow-up but she was having more back pain than before functionally and the new x-rays showed progression of this fracture with more anterior wedging. As at this point that we offered her surgical treatment in the form of kyphoplasty as she was wearing a TLSO and taking pain medications but this was not helping her pain at this time. She agreed and we proceeded with kyphoplasty. She denies any bowel or bladder issues denies any perineal numbness or tingling no other neurologic signs simply mechanical back pain and pain when ambulating around pain with bending. She had midline spinal tenderness as well and positive ballottement. Operative Findings: T9 vertebral compression fracture Description of Procedure: The patient was seen and examined in the preoperative area. All preoperative protocols were followed. Informed consent was obtained risks and benefits of the procedure were discussed at length. Risks including bleeding infection damage to the surrounding tissue and risk of reoperation were discussed with the patient. Risk of anesthesia up to and including was a discussed with the patient. These are outlined in the risk review. They were willing to accept these risks and all of the risks of surgery. The patient was given a weight- based dose of antibiotics in the form of 2 g Ancef. The patient was seen and evaluated by the anesthesia team who deemed them fit for surgery. The site was marked, the patient was willing to proceed with the procedure. The patient was transferred to the operative suite by the Department of anesthesia. They were then drifted off to sleep by the department anesthesia GETA. The patient tolerated this well. Once confirmation of lines and v entilation the patient was transferred to a prone Marvin Yoav table very carefully. All bony prominences including wrists, elbows, axilla, chest, hips, and thighs, and feet were padded very well. Special attention was paid to the genitalia and these were padded accordingly. SCDs were placed on bilateral lower extremities and were connected. Arms were well padded and placed [on arm boards up and out in the 90/90 position]. Once in position, again we confirmed good ventilation capabilities and that lines were running appropriately. The patient's thoracic spine was then exposed. 1010s were placed outlining the incision site. Standard alcohol was used to clean the incision site and allowed to dry. C-arm was used to biomark the patient and confirm level for incision which was marked with a skin marker. Operative briefing was performed with all teams and everyone in agreement to proceed. The patient was then prepped and draped in a normal sterile fashion. Timeout was then performed and all parties were in agreement with the procedure to be performed. We then performed needle localization of the T9 vertebral body in the AP and lateral fluoroscopic images. These were saved. Once we localized with the needle and under fluoroscopic guidance of the T9 vertebral body we did make a left-sided skin neck and introduced a Jamshidi into this area under AP and lateral fluoroscopic guidance we advanced a Jamshidi into the vertebral body on the left-hand side. We then reperformed this on the right-hand side advancing the Jamshidi into the vertebral body through the pedicle cord or safely. We confirmed good positions on AP and lateral view and proceeded with drilling of the bilateral vertebral bodies using a drill and lateral fluoroscopy once this was completed we used a curet to curet out the bone in the area and create space for the balloons. We did this under lateral fluoroscopy and bilaterally once we confirm this the balloons were then placed bilaterally and we inflated them to 300 mmHg. They were allowed to normalize. Under lateral fluoroscopy watch for reduction of the fracture with this and we did get some height back in the fracture. Once this was completed the balloons were deflated and removed we then proceeded with cementation of the left-sided vertebral body first cement was injected under lateral fluoroscopy pulsed which showed good cement fill we then replaced the trocar in this side and then went to the right-hand side where we did place cement through the trocar in this area under lateral fluoroscopy. Under pulsed lateral fluoroscopy replace this once there is good cement fill we took a quick AP shot which showed good fill across the vertebral body completely. We then placed the trochars bilaterally and lumbar cement to cure. The trochars were then removed under lateral fluoroscopy show narrowing no trailing of the cement no cement myelogram or arteriogram at this time. The trochars were removed. Final shots were taken which showed good cement fill good reduction and no extravasation. We then closed the wound with 3-0 nylon in a simple fashion we anesthetized the wound with half percent Marcaine without epinephrine in the muscle and subcu region. The wound was then cleaned and dressed sterilely with Band-Aids. The patient was then transferred back to her hospital bed atraumatically. Patient was then awakened and extubated by the department of anesthesia having tolerated the procedure very well with no complications. She was transferred to the postoperative care unit in stable condition.
== END | disposition home or self-care (01) ==
LOC: OR 12:42
PROVIDERS: ATTEND Orthopaedic Surgery
DX: S22.079A Unspecified fracture of T9-T10 vertebra, initial encounter for closed fracture (principal); W17.89XA Other fall from one level to another, initial encounter; E78.5 Hyperlipidemia, unspecified; Z95.3 Presence of xenogenic heart valve; F03.90 Unspecified dementia, unspecified severity, without behavioral disturbance, psychotic disturbance, mood disturbance, and anxiety; Z98.890 Other specified postprocedural states; Z82.5 Family history of asthma and other chronic lower respiratory diseases; Z81.8 Family history of other mental and behavioral disorders; Z79.82 Long term (current) use of aspirin; Z79.899 Other long term (current) drug therapy; Z88.6 Allergy status to analgesic agent; Z88.0 Allergy status to penicillin; Z88.2 Allergy status to sulfonamides; Z88.8 Allergy status to other drugs, medicaments and biological substances
CPT/HCPCS: 72070; 22513; J0690; J2405; J2001; J3010; J0330; J2704

== ENCOUNTER → 2021-03-19 | Outpatient (CLI) | payer MEDICARE ==
--- NOTE | 2021-03-19 14:41 | BD ---
EXAMINATION TYPE: Axial Bone Density DATE OF EXAM: 03/19/2021 COMPARISON: 11/25/2003 CLINICAL HISTORY: Height: 59.5 IN Weight: 136 LBS FRAX RISK QUESTIONS: History of Fracture in Adulthood: T9 FX 2020; RT TOE 2020; LT WRIST AGE 63; LT TIB/FIB AGE 63; RISK FACTORS HISTORY OF: Spine Fracture: T-9 AGE 85 History of Wrist Fracture: LT WRIST AGE 63 Surgery to Spine: T-2020 Active: YES Diet low in dairy products/other sources of calcium: YES Postmenopausal woman: AGE 51 Lost more than 2 inches in height since high school: YES 05/23" MEDICATIONS: Osteoporosis Medications: YES Which medication: RISEDRONATE SODIUM How Lon MONTH Additional Medications: CALCIUM, VIT D, OMEPRAZOLE, FISH OIL, GLUCOSAMINE CHONDROITIN, VIT B12, ALPHA LOPOIC ACID, GABAPENTIN, VISION SHIELD, VIT C, TURMERIC, STOOL SOFTENER, SIMVASTATIN, BABY ASPIRIN, MAGNESIUM, RISEDRONATE SODIUM, EXAM MEASUREMENTS: Bone mineral densitometry was performed using the [employer] System. Bone mineral density as measured about the Lumbar spine is: ----- L1-L4(G/cm2): 1.041 T Score Values are as follows: ----- L2: -2.3 ----- L3: -1.4 ----- L4: -0.1 ----- L1-L4: -1.2 Bone mineral density has: Increased 14.3% since study of: 11/25/2003 Bone mineral density about the R hip (g/cm2): 0.775 Bone mineral density about the L hip (g/cm2): 0.815 T Score values are as follows: -----R Neck: -1.9 -----L Neck: -1.6 -----R Total: -1.4 -----L Total: -0.8 Bone mineral density has: Decreased -3.7% since study of: 11/25/2003 IMPRESSION: Osteopenia (T Score between -2.5 and -1). There is slightly increased risk of fracture and the patient may be considered for treatment. Re-Screen 2-5 years. NOTE: T-SCORE=SD OF THE YOUNG ADULT MEAN.
== END | disposition home or self-care (01) ==
LOC: RADBDWWP 07:08
PROVIDERS: ATTEND Family Medicine
DX: Z13.820 Encounter for screening for osteoporosis (principal); M85.89 Other specified disorders of bone density and structure, multiple sites
CPT/HCPCS: 77080

== ENCOUNTER → 2021-06-14 | Outpatient (CLI) | payer MEDICARE ==
--- NOTE | 2021-06-14 08:35 | XR ---
EXAMINATION TYPE: XR thoracic spine complete DATE OF EXAM: 06/14/2021 CLINICAL HISTORY: Pain and discomfort since kyphoplasty in November. TECHNIQUE: Frontal, lateral, and swimmer's view of thoracic spine are obtained. COMPARISON: Prior thoracic spine x-ray December 09, [address] aorta November 10, 2020. FINDINGS: Thoracic spine show stable mild height loss with vertebroplasty at roughly T9 level. There is some cement extension just past posterior vertebral body margin thought present. Alignment is stab le and satisfactory. Vertebral body heights and disc space heights otherwise are preserved. Overlying epicardial pacer wires and sternal wires along with mediastinal clips and surgical change to cardiac valve are all redemonstrated. IMPRESSION: As above.
== END | disposition home or self-care (01) ==
LOC: RADXRMAIN 08:04
PROVIDERS: ATTEND Psychiatry & Neurology Neurology
DX: M54.6 Pain in thoracic spine (principal)
CPT/HCPCS: 72072

== ENCOUNTER → 2022-11-28 | Outpatient (CLI) | payer MEDICARE ==
--- NOTE | 2022-11-28 08:47 | US ---
EXAMINATION TYPE: US thyroid st tissue head/neck DATE OF EXAM: 11/28/2022 COMPARISON: NONE CLINICAL INDICATION: Female, 87 years old with history of E04.2 MULTINODULAR GOITER; GLAND SIZE: Right Lobe: 4.2 x 1.8 x 1.7 cm Overall Parenchyma: heterogenous Left Lobe: 5.7 x 3.2 x 3.3 cm Overall Parenchyma: heterogenous Isthmus Thickness: 0.3 cm NODULES RIGHT: # of nodules measured on right: multiple nodules with largest described below 1. 2.2 X 1.3 x 2.5 cm, lower medial, solid or almost completely solid, hypoechoic nodule, which is wider than tall, with smooth margins, without echogenic foci. Prior size: no previous LEFT: # of nodules measured on left: 1 1. 4.2 X 3.0 x 3.6 cm, mid, solid or almost completely solid, isoechoic nodule, which is wider than tall, with ill-defined margins, without echogenic foci. Prior size: no previous ISTHMUS: # of nodules measured in the isthmus: 0 Bilateral neck scanned, no evidence of lymphadenopathy. IMPRESSION: Nodule left lobe TR3 Mildly Suspicious: FNA if ? 2.5 cm; Follow if ? 1.5 cm at 1, 3, and 5 y
== END | disposition home or self-care (01) ==
LOC: RADUSWWP 08:04
PROVIDERS: ATTEND Internal Medicine Endocrinology, Diabetes & Metabolism
DX: E04.2 Nontoxic multinodular goiter (principal)
CPT/HCPCS: 76536

== ENCOUNTER 2022-12-29 08:51 | Day surgery (SDC) | payer MEDICARE ==
[2022-12-29 09:27] VITALS: RESP 16; TEMP 98.3
[2022-12-29] MEDS ORDERED: ALPRAZolam 0.25 MG TAB PO STA (09:35)
[2022-12-29 11:08] VITALS: BP 133/65; PULSE 66
--- NOTE | 2022-12-29 15:50 | US ---
CLINICAL INDICATION: Bilateral thyroid nodules. COMPARISON: Thyroid ultrasound 11/28/2022 Informed consent was obtained. The risks and benefits of the procedure were discussed with the patien t. The site was marked. Timeout procedure was performed Ultrasound imaging of the thyroid demonstrates bilateral solid thyroid nodules corresponding to prior ultrasound. The patient was prepped, draped in the usual sterile fashion, and locally anesthetized with 1% lidoca ine. Five fine needle aspiration were performed of the left thyroid nodule with a 25 gauge needle un zohu constant ultrasound guidance. Five fine needle aspiration were then performed of the right thyro id nodule with a 25 gauge needle under constant ultrasound guidance. Samples were sent to the pathol ogy department for further analysis. Patient tolerated the procedure without incident and was sent h [facility] in stable condition. IMPRESSION: Successful ultrasound guided fine needle aspiration of bilateral thyroid nodules.
== END 2022-12-29 10:45 | disposition home or self-care (01) ==
LOC: RADPROMAIN 08:51
PROVIDERS: ATTEND Internal Medicine Endocrinology, Diabetes & Metabolism
DX: E04.2 Nontoxic multinodular goiter (principal)
CPT/HCPCS: 10005; 10006; 88173; 88305

== ENCOUNTER → 2023-05-18 | Outpatient (CLI) | payer MEDICARE ==
--- NOTE | 2023-05-19 13:20 | US ---
EXAMINATION TYPE: US transvaginal DATE OF EXAM: 05/18/2023 COMPARISON: NONE CLINICAL INDICATION: Female, 87 years old with history of N81.4 UTEROVAGINAL PROLAPSE, UNSPECIFIED; TECHNIQUE: Transvaginal sonographic images were ordered by doctor Date of LMP: Unknown EXAM MEASUREMENTS: Uterus: 4.4 x 1.7 x 3.6 cm Endometrial Stripe: 0.6 cm Right Ovary: 1.9 x 1.1 x 1.4 cm Left Ovary: 2.4 x 1.4 x 1.6 cm 1. Uterus: Anteverted. Multiple echogenic and cystic areas throughout the myometrium. 2. Endometrium: wnl 3. Right Ovary: wnl 4. Left Ovary: wnl 5. Bilateral Adnexa: wnl 6. Posterior cul-de-sac: wnl IMPRESSION: 1. Multiple echogenic and cystic areas seen throughout the myometrium. Findings could reflect diffuse small fibroid change, scattered myometrial calcifications, or adenomyosis. 2. The endometrial stripe is borderline in thickness at 6 mm. Consider short interval follow-up in 3- 6 months to reassess. 3. Otherwise, no specific abnormality seen.
== END | disposition home or self-care (01) ==
LOC: RADUSWWP 15:21
PROVIDERS: ATTEND Obstetrics & Gynecology
DX: N81.4 Uterovaginal prolapse, unspecified (principal)
CPT/HCPCS: 76830

== ENCOUNTER → 2023-05-24 | Outpatient (CLI) | payer MEDICARE ==
[2023-05-24 11:13] LABS: Basophils # (A) 0.01 X 10*3/uL (0.00-0.10); Basophils % (A) 0.2 %; Eosinophils # (A) 0.14 X 10*3/uL (0.04-0.35); Eosinophils % (A) 2.9 %; HCT 37.8 % (37.2-46.3); HGB 12.5 g/dL (12.0-15.0); Lymphocytes # (A) 1.08 X 10*3/uL (0.90-5.00); Lymphocytes % (A) 22.4 %; MCH 31.4 pg (27.0-32.0); MCHC 33.1 g/dL (32.0-37.0); Mean Platelet Volume 9.6 FL (9.5-12.2); Monocytes % (A) 10.4 %; NRBC Per 100 WBC 0 X 10*3/uL (0.00-0.01); Neutrophils # (A) 3.08 X 10*3/uL (1.80-7.70); Neutrophils % (A) 63.7 %; Platelet Count 209 X 10*3/uL (140-440); RBC 3.98 X 10*6/uL (4.10-5.20); RDW 13.9 % (11.5-14.5); WBC 4.83 X 10*3/uL (4.50-10.00)
[2023-05-24 11:59] LABS: BUN/Creat Ratio 24.38 Ratio (12.00-20.00); Blood Urea Nitrogen 19.5 mg/dL (9.0-27.0); Calcium 9.2 mg/dL (8.7-10.3); Chloride 107 mmol/L (96-109); Glucose 92 mg/dL (70-110); Potassium 4.2 mmol/L (3.5-5.5); Sodium 140 mmol/L (135-145)
== END | disposition home or self-care (01) ==
LOC: LABWHC1 07:52
PROVIDERS: ATTEND Obstetrics & Gynecology
DX: Z01.812 Encounter for preprocedural laboratory examination (principal)
CPT/HCPCS: 36415; 80048; 85025; 86850; 86900; 86901

== ENCOUNTER 2023-05-31 05:45 | Day surgery (SDC) | payer MEDICARE ==
--- NOTE | 2023-05-30 16:33 | P.HPOB ---
History of Present Illness H&P Date: 05/30/23 Chief Complaint: Uterine prolpase with cystocele & rectocele This is an 87 y.o. female, 4, para 4, who presents for total vaginal hysterectomy with anterior and possible posterior vaginal colporrhaphy, possible total abdominal hysterectomy with bilateral salpingooophorectomy due to uterine prolapse with cystocele and rectocele and urinary incontinence. She did see Dr. Delatorre who does not feel she needs a sling. She has tried a pessary but kept getting granulation tissue that required cauterization. Her leakage is about the same with or without the pessary. Dr. Delatorre did start her on Vesicare and she has seen some improvement. She still feels a bulge that causes her discomfort and wants definitive surgical repair. Ultrasound shows uterus measuring 4.4 x 1.7 x 3.6 cm, endometrium 0.6 cm, multiple echogenic and cystic areas, possible fibroid changes noted in myometrium. Normal ovaries bilaterally. OB Hx: . History of 4 vaginal deliveries. 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 Not sexually active. Social Hx: . Retired. Review of Systems Constitutional: Denies chills, Denies fever Eyes: denies blurred vision, denies pain Ears, nose, mouth and throat: Denies headache, Denies sore throat Cardiovascular: Denies chest pain, Denies shortness of breath Respiratory: Denies cough Gastrointestinal: Reports heartburn, Denies abdominal pain, Denies diarrhea, Denies nausea, Denies vomiting Genitourinary: Reports prolapse symptoms, Reports stress incontinence, Reports urge incontinence, Denies abnormal vaginal bleeding Menstruation: Reports postmenopausal Musculoskeletal: Reports myalgias Integumentary: Denies pruritus, Denies rash Neurological: Denies numbness, Denies weakness Psychiatric: Denies anxiety, Denies depression Endocrine: Denies fatigue, Denies weight change Past Medical History Past Medical History: GERD/Reflux, Hyperlipidemia, Hypertension, Musculoskeletal Disorder, Osteoarthritis (OA) Additional Past Medical History / Comment(s): aortic valve replacement (pig valve size 19), sinus drainage frequently, papilloma right sinus cavity, 2020 hospitalization due to compression fx T9. & elevated BP which was due to pain, also a rib fx. on right side. some chest discomfort if walking too far too fast- Dr Rodriges aware. urine incontinence, goiter bilaterally benign History of Any Multi-Drug Resistant Organisms: None Reported Past Surgical History: Appendectomy, Cardiac Valve Replacement, Hernia Repair, Orthopedic Surgery, Tubal Ligation Additional Past Surgical History / Comment(s): aortic valve replacement 2017, lt knee, rt ankle x3, carpal tunnel bilateral wrists, sinus surg. x2, hernia x3 Past Anesthesia/Blood Transfusion Reactions: No Reported Reaction Past Psychological History: No Psychological Hx Reported Smoking Status: Never smoker Past Alcohol Use History: None Reported Past Drug Use History: None Reported - Past Family History Father Additional Family Medical History / Comment(s): emphysema Mother Additional Family Medical History / Comment(s): alzheimers Medications and Allergies Home Medications Medication Instructions Recorded Confirmed Type Aspirin EC [Ecotrin Low Dose] 81 mg PO HS 11/10/20 05/31/23 History Calcium Carbonate [Calcium] 600 mg PO HS 11/10/20 05/31/23 History Cholecalciferol [Vitamin D3 (25 50 mcg PO HS 11/10/20 05/31/23 History Mcg = 1000 Iu)] Fish Oil/Dha/Epa [Fish Oil 1,200 1 cap PO DAILY 11/10/20 05/31/23 History mg Fish Oil] Gabapentin [Neurontin] 300 mg PO HS 11/10/20 05/31/23 History Glucosam/Al-Msm1/C/Kenny/Bosw 1 tab PO DAILY 11/10/20 05/31/23 History [Glucosamine-Chondroitin Tablet] Omeprazole 20 mg PO BID 11/10/20 05/31/23 History Simvastatin [Zocor] 20 mg PO HS 11/10/20 05/31/23 History polyethylene glycoL 3350 [Clearlax] 17 gm PO DAILY PRN 11/10/20 05/31/23 History Alpha Lipoic Acid 600 mg PO DAILY 12/26/22 05/31/23 History Docusate [Colace] 100 mg PO BID 12/26/22 05/31/23 History Latanoprost [Latanoprost 0.005%] 1 drop BOTH EYES HS 12/26/22 05/31/23 History Magnesium Oxide [Magnesium] 500 mg PO DAILY 12/26/22 05/31/23 History Risedronate Sodium 150 mg PO QMONTHLY 12/26/22 05/31/23 History amLODIPine [Norvasc] 5 mg PO HS 12/26/22 05/31/23 History rOPINIRole HCL [Requip] 0.5 mg PO HS 12/26/22 05/31/23 History Unk Tumeric 1 tab PO BID 05/25/23 05/31/23 History Unk Vitamin B12 1 tab PO DAILY 05/25/23 05/31/23 History Unk Vitamin C 1 tab PO DAILY 05/25/23 05/31/23 History Unk Vision Shield Vitamin 1 tab PO BID 05/26/23 05/31/23 History Unk Zithromax 1 tab PO DIRECTED PRN 05/26/23 05/31/23 History Allergies Allergy/AdvReac Type Severity Reaction Status Date / Time Penicillins Allergy Rash/Hives Verified 05/31/23 06:10 Sulfa (Sulfonamide Allergy Rash/Hives Verified 05/31/23 06:10 Antibiotics) cortisone AdvReac flushing Verified 05/31/23 06:10 ibuprofen [From Motrin] AdvReac Nausea & Verified 05/31/23 06:10 Vomiting Exam Osteopathic Statement: *. No significant issues noted on an osteopathic structural exam other than those noted in the History and Physical/Consult. HEENT: within normal limits Heart: regular rate and rhythm Lungs: clear to auscultation bilaterally Abdomen: soft, non-tender Pelvic: uterus small, 2nd degree uterine prolapse, 3rd degree cystocele, 1st degree rectocele, no adnexal masses or tenderness Extremities: neg. Alton's Assessment and Plan (1) Cystocele and rectocele with incomplete uterovaginal prolapse Current Visit: No Status: Acute Code(s): N81.2 - INCOMPLETE UTEROVAGINAL PROLAPSE SNOMED Code(s): 437361563 Plan: Proceed with total vaginal hysterectomy with anterior, possible posterior vaginal colporrhaphy, possible total abdominal hysterectomy with bilateral salpingooophorectomy. I have discussed the risks, benefits, and alternative therapies for the above- mentioned procedure and for both sedation/anesthesia as well as necessary blood products administration, if indicated, as they pertain to this patient. The patient has indicated her understanding and acceptance of the risks and procedures discussed.
[2023-05-31] MEDS ORDERED: ONDANSETRON 4 MG/2 ML VIAL IVP ONE ×2 (05:58→06:50)
[2023-05-31] MEDS ORDERED: LIDOCAINE 1% (10MG/ML) FOR IV START INTRADERMA PRN (05:58)
[2023-05-31] MEDS: LACTATED RINGERS 1,000 ML IV SCH (06:33)
[2023-05-31] MEDS ORDERED: DEXAMETHASONE SOD PHOSPHATE 4 MG/ML 1 ML VIAL IVP ONE (06:51)
[2023-05-31] MEDS ORDERED: HYDROmorphone 0.5 MG/0.5 ML SYRINGE IVP PRN (07:00)
[2023-05-31] MEDS ORDERED: fentaNYL (PF) 50 MCG/ML 2 ML AMP ONE (07:25)
[2023-05-31] MEDS ORDERED: KETAMINE HCL IN 0.9 % NACL 50 MG/5 ML SYRINGE ONE (07:25)
[2023-05-31] MEDS ORDERED: MIDAZOLAM 2 MG/2 ML VIAL ONE (07:25)
[2023-05-31] MEDS ORDERED: MORPHINE SULFATE (PF) 0.3 MG/0.3 ML SYR ONE (07:25)
[2023-05-31] MEDS ORDERED: GLYCOPYRROLATE 0.2 MG/ML 2 ML VIAL ONE (07:25)
[2023-05-31] MEDS ORDERED: PROPOFOL 10 MG/ML 20 ML VIAL IV ONE (07:25)
--- NOTE | 2023-05-31 07:55 | P.ANPRN ---
Procedure Note - Anesthesia - Epidural/Spinal Spinal Time Out Performed: Yes Date of Procedure: 05/31/23 Procedure Start Time: 07:42 Procedure Stop Time: 07:47 Location of Patient: OR Indication: Acute Post-Operative Pain, Requested by Surgeon ([email or web address]) Sedation Type: Sedate with meaningful contact maintained Preparation: Sterile Prep Number of Attempts: 1 Position: Sitting Catheter: None Needle Guage: 22 Injectate: bupi 0.75% 1.3cc and DM 150mcg Narrative: +csf Blood Aspirated: No Pain Paresthesia on Injection Noted: No Events: Uneventful and Well Tolerated
[2023-05-31] MEDS ORDERED: BACITRACIN ZINC 500 UNIT/GM OINT 28.4 GM TUBE TOPICAL ONE (08:10)
--- NOTE | 2023-05-31 08:46 | P.OP ---
Date of Procedure: 05/31/23 Preoperative Diagnosis: Uterine prolapse with cystocele and rectocele Urinary incontinence Postoperative Diagnosis: Same Procedure(s) Performed: Total vaginal hysterectomy with anterior vaginal colporrhaphy Anesthesia: spinal (Duramorph) Surgeon: Kym Butler Service Car Driver #1: Marilyn Kimble Estimated Blood Loss (ml): 25 Pathology: other (Uterus with cervix, vaginal mucosa) Condition: stable Disposition: floor Indications for Procedure: This is an 87 y.o. female, 4, para 4, who presents for total vaginal hysterectomy with anterior and possible posterior vaginal colporrhaphy, possible total abdominal hysterectomy with bilateral salpingooophorectomy due to uterine prolapse with cystocele and rectocele and urinary incontinence. She did see Dr. Delatorre who does not feel she needs a sling. She has tried a pessary but kept getting granulation tissue that required cauterization. Her leakage is about the same with or without the pessary. Dr. Delatorre did start her on Vesicare and she has seen some improvement. She still feels a bulge that causes her discomfort and wants definitive surgical repair. Ultrasound shows uterus measuring 4.4 x 1.7 x 3.6 cm, endometrium 0.6 cm, multiple echogenic and cystic areas, possible fibroid changes noted in myometrium. Normal ovaries bilaterally. Operative Findings: Grade 2 uterine prolapse and grade 3 cystocele are noted. Very minimal rectocele is noted. Vaginal atrophy is noted. Neither tube or ovary was visualized. Description of Procedure: The patient is taken the operating room where she is placed in the dorsal lithotomy position. She is prepped and draped in the normal sterile fashion. Next a weighted speculum was placed in the patient's vagina and a right angle retractor was used to visualize the cervix. Cervix is noted be extremely stenotic. The anterior lip of the cervix is grasped with a single-tooth tenaculum. Next the cervix was circumferentially injected with one amp of epinephrine to 150 mL of normal saline. Next the cervix was circumscribed with a scalpel. The vaginal mucosa was pushed away from the cervix with a sponge. Next the uterosacral ligaments are clamped on either side with a Kady clamp, cut with Taylor scissors, and then sutured with 0 Vicryl suture in a Kady transfixion stitch and then held on either side with a straight hemostat. Next the posterior peritoneal reflection was identified and entered sharply with Taylor scissors. The edges of the vaginal mucosa was then tagged with 0 Vicryl suture and held with a curved hemostat for identification. Next a longbilled weighted speculum was placed through the posterior peritoneal reflection. Next the cardinal ligaments were clamped on either side with Kady clamps, cut with Taylor scissors, and then sutured with 0 Vicryl suture in Kady transfixion stitches and cut. Next the vesicouterine peritoneum reflection is identified and entered sharply with Metzenbaum scissors. A right angle bladder retractor is then used to retract the bladder. The uterine arteries are clamped on either side with Kady clamps, cut with Taylor scissors, and then sutured with 0 Vicryl suture in Kady transfixion stitches. The round ligament is also clamped on either side with a Kady clamp, cut with Taylor scissors, and sutured with 0 Vicryl suture in Kady transfixion stitches. Next the uterine ovarian ligament and tube were clamped on either side with a Kady clamp, cut with Taylor scissors, and then sutured with 0 Vicryl suture in a [id number] stitch, flashed, and then free tied with another suture of 0 Vicryl suture. These pedicles were held with a straight Isidoro for identification. The uterus is removed from the field. Excellent hemostasis is noted. Next the peritoneum is closed with 0 Vicryl suture in a pursestring fashion incorporating all the held ligaments. Neither tube or ovary was visualized prior to closing the vaginal cuff area. Next the uterine ovarian ligaments are tied together in the middle and cut. Next attention was turned to the cystocele repair. The edges of the vaginal mucosa are held with 2 Allis clamps. Next injection of the same epinephrine solution is injected underneath the mucosa upwards towards the urethra. Metzenbaum scissors were used to dissect underneath the vaginal mucosa and cut along the way up to just below the urethra. Sharp and blunt dissection are used to dissect the bladder away from the vaginal mucosa. Once the bladder is freed, the cystocele is reduced with 0 Vicryl suture in [id number] stitches on either side of the cystocele. Next the edges of the vaginal mucosa are trimmed with Metzenbaum scissors. Next the vaginal mucosa is sutured with 0 Vicryl suture in a running locked fashion incorporating the vaginal cuff. The uterosacral ligaments were also tied together in the midline prior to completely closing the vaginal cuff. Excellent hemostasis is noted. No appreciable rectocele is noted after the above-noted procedure is completed. Rectocele repair is not performed. The Carrillo catheter is inserted and clear urine is noted. Next the vagina is packed with one-inch iodoform gauze with bacitracin ointment. All sponge and needle counts are correct and the patient is then taken to recovery room in stable condition.
[2023-05-31] MEDS ORDERED: KETOROLAC 15 MG/ML 1 ML VIAL IVP ONE (09:56)
[2023-05-31] MEDS ORDERED: polyethylene glycoL 3350 17 GM POWD.PACK PO PRN (10:36)
[2023-05-31] MEDS ORDERED: ACETAMINOPHEN IV (For NPO) 1,000 MG in EMPTY BAG 1 BAG IVPB ONE (10:36)
[2023-05-31] MEDS ORDERED: diphenhydrAMINE 50 MG/ML 1 ML VIAL IVP PRN (10:36)
[2023-05-31] MEDS ORDERED: SIMETHICONE 80 MG CHEWABLE PO PRN (10:36)
[2023-05-31] MEDS ORDERED: ONDANSETRON 4 MG/2 ML VIAL IVP PRN (10:36)
[2023-05-31] MEDS ORDERED: METOCLOPRAMIDE 5 MG/ML 2 ML VIAL IVP PRN (10:36)
[2023-05-31] MEDS ORDERED: ZOLPIDEM 5 MG TAB PO PRN (10:36)
[2023-05-31] MEDS: PANTOPRAZOLE 40 MG TABLET PO SCH (16:32)
[2023-05-31] MEDS: SENNOSIDES-DOCUSATE SODIUM 1 EACH TAB PO SCH ×2 (16:32→20:38)
[2023-05-31] MEDS: KETOROLAC 15 MG/ML 1 ML VIAL IVP PRN (16:46)
[2023-05-31] MEDS ORDERED: ACETAMINOPHEN TAB 325 MG TAB PO PRN (20:29)
[2023-05-31] MEDS ORDERED: LATANOPROST 0.005% OPHTH DROPS 2.5 ML BTL BOTH EYES SCH (21:00)
[2023-05-31] MEDS ORDERED: amLODIPine 5 MG TAB PO SCH (21:00)
[2023-05-31] MEDS ORDERED: GABAPENTIN 300 MG CAP PO SCH (21:00)
[2023-05-31] MEDS ORDERED: ASPIRIN 81 MG PO SCH (21:00)
[2023-05-31] MEDS ORDERED: ATORVASTATIN 10 MG TAB PO SCH (21:00)
[2023-06-01] MEDS: KETOROLAC 15 MG/ML 1 ML VIAL IVP PRN (06:23)
[2023-06-01] MEDS: PANTOPRAZOLE 40 MG TABLET PO SCH (06:24)
[2023-06-01] MEDS: LACTATED RINGERS 1,000 ML IV SCH (07:36)
[2023-06-01] MEDS ORDERED: ACETAMINOPHEN TAB 325 MG TAB PO PRN (07:45)
[2023-06-01 07:49] LABS: Basophils % (A) 0 %; Eosinophils # (A) 0.1 k/uL (0-0.7); Eosinophils % (A) 1 %; HCT 36.6 % (34.0-46.0); HGB 12.4 gm/dL (11.4-16.0); Lymphocytes # (A) 1.1 k/uL (1.0-4.8); Lymphocytes % (A) 12 %; MCH 32.1 pg (25.0-35.0); MCV 94.3 fL (80.0-100.0); Mean Platelet Volume 7.6; Monocytes # (A) 0.5 k/uL (0-1.0); Monocytes % (A) 6 %; Neutrophils # (A) 7.6 k/uL (1.3-7.7); Neutrophils % (A) 80 %; Platelet Count 240 k/uL (150-450); RBC 3.88 m/uL (3.80-5.40); RDW 13.3 % (11.5-15.5); WBC 9.4 k/uL (3.8-10.6)
[2023-06-01] MEDS: SENNOSIDES-DOCUSATE SODIUM 1 EACH TAB PO SCH (08:18)
[2023-06-01 08:29] VITALS: BP 144/72; PULSE 62; RESP 16; TEMP 98
--- NOTE | 2023-06-01 08:44 | P.DS ---
Providers Expected date of discharge: 06/01/23 Attending physician: Kym Butler Primary care physician: Yoel Blood MD - Discharge Diagnosis(es) (1) Cystocele and rectocele with incomplete uterovaginal prolapse Current Visit: No Status: Acute Hospital Course: This is an 87-year-old female who underwent a total vaginal hysterectomy with anterior vaginal colporrhaphy on 05/31/2023. Postoperatively she has done well. She is ambulating. She is urinating without difficulty. She is passing flatus and bowel movement. She is tolerating regular diet. Her pain is well-controlle d with Tylenol. She has no bleeding currently. Vital signs are stable. Abdomen is soft with positive bowel sounds 4. Samantha-pad shows no bleeding. Impression is status post total vaginal hysterectomy with anterior vaginal colporrhaphy postoperative day #1. Plan is to discharge home today. Routine postoperative instructions are given. She is advised to follow up in the office in approximately 2 weeks for a postoperative check. She is advised to call the office if she has any further questions or concerns prior to her appointment time. Procedures: Total vaginal hysterectomy with anterior vaginal colporrhaphy on 05/31/2023 Patient Condition at Discharge: Stable Plan - Discharge Summary Discharge Rx Participant: Yes New Discharge Prescriptions: No Action Simvastatin [Zocor] 20 mg PO HS Cholecalciferol [Vitamin D3 (25 Mcg = 1000 Iu)] 50 mcg PO HS Calcium Carbonate [Calcium] 600 mg PO HS Glucosam/Al-Msm1/C/Kenny/Bosw [Glucosamine-Chondroitin Tablet] 1 tab PO DAILY Fish Oil/Dha/Epa [Fish Oil 1,200 mg Fish Oil] 1 cap PO DAILY Gabapentin [Neurontin] 300 mg PO HS polyethylene glycoL 3350 [Clearlax] 17 gm PO DAILY PRN PRN Reason: Constipation Risedronate Sodium 150 mg PO QMONTHLY Magnesium Oxide [Magnesium] 500 mg PO DAILY Latanoprost [Latanoprost 0.005%] 1 drop BOTH EYES HS Unk Vitamin C 1 tab PO DAILY Unk Tumeric 1 tab PO BID Unk Vision Shield Vitamin 1 tab PO BID Unk Zithromax 1 tab PO DIRECTED PRN PRN Reason: dental prophylaxis Aspirin EC [Ecotrin Low Dose] 81 mg PO HS Omeprazole 20 mg PO BID amLODIPine [Norvasc] 5 mg PO HS rOPINIRole HCL [Requip] 0.5 mg PO HS Docusate [Colace] 100 mg PO BID Alpha Lipoic Acid 600 mg PO DAILY Unk Vitamin B12 1 tab PO DAILY Discharge Medication List Aspirin EC [Ecotrin Low Dose] 81 mg PO HS 11/10/20 [History] Calcium Carbonate [Calcium] 600 mg PO HS 11/10/20 [History] Cholecalciferol [Vitamin D3 (25 Mcg = 1000 Iu)] 50 mcg PO HS 11/10/20 [History] Fish Oil/Dha/Epa [Fish Oil 1,200 mg Fish Oil] 1 cap PO DAILY 11/10/20 [History] Gabapentin [Neurontin] 300 mg PO HS 11/10/20 [History] Glucosam/Al-Msm1/C/Kenny/Bosw [Glucosamine-Chondroitin Tablet] 1 tab PO DAILY 11/10/20 [History] Omeprazole 20 mg PO BID 11/10/20 [History] Simvastatin [Zocor] 20 mg PO HS 11/10/20 [History] polyethylene glycoL 3350 [Clearlax] 17 gm PO DAILY PRN 11/10/20 [History] Alpha Lipoic Acid 600 mg PO DAILY 12/26/22 [History] Docusate [Colace] 100 mg PO BID 12/26/22 [History] Latanoprost [Latanoprost 0.005%] 1 drop BOTH EYES HS 12/26/22 [History] Magnesium Oxide [Magnesium] 500 mg PO DAILY 12/26/22 [History] Risedronate Sodium 150 mg PO QMONTHLY 12/26/22 [History] amLODIPine [Norvasc] 5 mg PO HS 12/26/22 [History] rOPINIRole HCL [Requip] 0.5 mg PO HS 12/26/22 [History] Unk Tumeric 1 tab PO BID 05/25/23 [History] Unk Vitamin B12 1 tab PO DAILY 05/25/23 [History] Unk Vitamin C 1 tab PO DAILY 05/25/23 [History] Unk Vision Shield Vitamin 1 tab PO BID 05/26/23 [History] Unk Zithromax 1 tab PO DIRECTED PRN 05/26/23 [History] Follow up Appointment(s)/Referral(s): Kym Butler DO [Doctor of Osteopathic Medicine] - 2 Weeks Activity/Diet/Wound Care/Special Instructions: Activity as tolerated. Diet as tolerated. May shower, but no tub baths for 1 week. No intercourse for 6 weeks. No heavy lifting. Discharge Disposition: HOME SELF-CARE
== END 2023-06-01 09:45 | disposition home or self-care (01) ==
LOC: OR 05:45 → 4FBP 08:51 → OR 06-01 09:45
PROVIDERS: ATTEND Obstetrics & Gynecology
DX: N81.2 Incomplete uterovaginal prolapse (principal); I10 Essential (primary) hypertension; E78.5 Hyperlipidemia, unspecified; K21.9 Gastro-esophageal reflux disease without esophagitis; M19.90 Unspecified osteoarthritis, unspecified site; Z98.890 Other specified postprocedural states; Z98.51 Tubal ligation status; Z95.2 Presence of prosthetic heart valve; Z88.2 Allergy status to sulfonamides; Z88.0 Allergy status to penicillin; Z88.6 Allergy status to analgesic agent; Z88.8 Allergy status to other drugs, medicaments and biological substances; Z79.82 Long term (current) use of aspirin; Z79.899 Other long term (current) drug therapy
CPT/HCPCS: 58260; 57260; 88305; 85025; 88302; J2250; J0171; J1100; J0690; J2405; J2274; J3010; J0131; J1885 ×2; J2704

== ENCOUNTER → 2023-07-31 | Outpatient (CLI) | payer MEDICARE ==
--- NOTE | 2023-07-31 14:28 | CT ---
EXAMINATION TYPE: CT brain wo con DATE OF EXAM: 07/31/2023 COMPARISON: None available. HISTORY: Concussion w/o LOC. Dizziness. CT DLP: 1047.1 mGycm Automated exposure control for dose reduction was used. FINDINGS: There is no acute intracranial hemorrhage, mass, mass effect, midline shift, extra axial fluid collec tion or hydrocephalus. There is mild hypoattenuation in the periventricular, subcortical and deep white matter which likely relates to chronic ischemic small vessel change. There is significant opacification involving the right maxillary sinus with some expansion of the rig ht maxillary sinus and disruption of the medial wall. The visualized paranasal sinuses and mastoid ai r cells are otherwise clear. IMPRESSION: 1. MILD CHRONIC CHANGES WITH NO ACUTE INTRACRANIAL PROCESS. 2. SIGNIFICANT RIGHT MAXILLARY SINUS DISEASE ABOVE.
== END | disposition home or self-care (01) ==
LOC: RADCTMAIN 14:01
PROVIDERS: ATTEND Family Medicine
DX: J34.89 Other specified disorders of nose and nasal sinuses (principal); G93.89 Other specified disorders of brain; S06.0X0A Concussion without loss of consciousness, initial encounter; W19.XXXA Unspecified fall, initial encounter
CPT/HCPCS: 70450

== ENCOUNTER 2023-08-08 07:43 | Day surgery (SDC) | payer MEDICARE ==
[2023-08-08] MEDS: LACTATED RINGERS 1,000 ML IV SCH (07:59)
[2023-08-08 08:25] VITALS: TEMP 97.7
[2023-08-08] MEDS ORDERED: LIDOCAINE 2% (PF) 20 MG/ML 5 ML VIAL ONE (08:33)
[2023-08-08] MEDS ORDERED: PROPOFOL 10 MG/ML 20 ML VIAL IV ONE (08:33)
--- NOTE | 2023-08-08 08:56 | P.PCN ---
Date of Procedure: 08/08/23 Procedure(s) Performed: BRIEF HISTORY: Patient is a 88-year-old, pleasant, white female scheduled for an upper endoscopy as a part of evaluation of intermittent dysphagia to solids for the last several years duration.. PROCEDURE PERFORMED: Esophagogastroduodenoscopy with biopsy and dilation . PREOPERATIVE DIAGNOSIS: Intermittent dysphagia to solids for the last several years duration. IV sedation per anesthesia. PROCEDURE: After informed consent was obtained, the patient was brought into the endoscopy unit. IV sedation was administered by Anesthesia under continuous monitoring. Initially the Olympus GIF-140 video endoscope was inserted into the mouth. Esophagus intubated without any difficulty. It was gradually advanced into the stomach and duodenum and carefully examined. The bulb and the second part of the duodenum appeared normal. The scope at this time was withdrawn to the stomach, adequately insufflated with air, and upon careful examination, mucosa of the antrum appeared normal. Multiple gastric polyps noted in the body the stomach. Mucosa of the, body, cardia and the fundus appeared normal. The scope was then withdrawn into the esophagus. Small hiatal hernia noted. In the cardia of the stomach there was a 7 mm polyp that was biopsied. The GE junction was located at 35 cm from the incisors. There was a distal esophageal Schatzki's ring identified that was dilated using 18-20 mm TTS balloon in a sequential fashion for 30 seconds. The rest of the esophagus appeared normal. There were no erosions or ulcerations seen and the patient tolerated the procedure well. IMPRESSION: 1. Distal esophageal Schatzki's ring status post balloon dilation using 18-20 mm TTS balloon in a sequential fashion for 30 seconds. 2. 7 mm polyp in the cardia of the stomach status post biopsy 3. Small hiatal hernia 4. Multiple gastric polyps. RECOMMENDATIONS: The findings of this examination were discussed with the patient as well as her family. She was advised to follow with the biopsy results. She'll remain on clear liquid diet for 2 hours. Follow up in office if she has persistent dysphagia.
[2023-08-08 09:36] VITALS: BP 113/56; PULSE 60; RESP 17
== END 2023-08-08 09:59 | disposition home or self-care (01) ==
LOC: ORWHC2ENDO 07:43
PROVIDERS: ATTEND Internal Medicine Gastroenterology
DX: K31.7 Polyp of stomach and duodenum (principal); K22.2 Esophageal obstruction; K44.9 Diaphragmatic hernia without obstruction or gangrene; I10 Essential (primary) hypertension; E78.5 Hyperlipidemia, unspecified; K21.9 Gastro-esophageal reflux disease without esophagitis; Z98.890 Other specified postprocedural states; Z88.0 Allergy status to penicillin; Z88.2 Allergy status to sulfonamides; Z88.8 Allergy status to other drugs, medicaments and biological substances
CPT/HCPCS: 88305; 43239; 43249; J2704; J2001; C1726

== ENCOUNTER → 2023-11-13 | Outpatient (CLI) | payer MEDICARE ==
--- NOTE | 2023-11-13 13:46 | US ---
EXAMINATION TYPE: US thyroid st tissue head/neck DATE OF EXAM: 11/13/2023 COMPARISON: 11/28/22 12/29/2022 biopsy CLINICAL INDICATION: Female, 88 years old with history of E04.2 NONTOXIC MULTINODULAR GOITER; follow up on nodules GLAND SIZE: Right Lobe: 4.2 x 1.3 x 1.6 cm Overall Parenchyma: homogeneous Left Lobe: 6.0 x 3.5 x 3.4 cm Overall Parenchyma: homogeneous Isthmus Thickness: 0.4 cm NODULES RIGHT: # of nodules measured on right: 1 1. 2.4 X 2.2 x 1.1 cm, lower mid, Prior size: 2.2 x 2.5 x 1.3 cm TIRADS Score: 4 TIRADS Category 4: Composition: Solid or almost completely solid (2 points). Echogenicity: Hypoechoic (2 points). Shape: Wider than tall (0 points). Margin: Smooth (0 points). Echogenic foci: None or large comet-tail artifacts (0 points) Recommendation: If >1.5cm: FNA; If >1cm: Follow up at 1,2, 3,5 years LEFT: # of nodules measured on left: 1 1. 4.5 X 4.0 x 3.3 cm, mid mid, Prior size: 4.2 x 3.6 x 3.0 cm TIRADS Score: 3 TIRADS Category 3: Mildly Suspicious Composition: Solid or almost completely solid (2 points). Echogenicity: Hyperechoic or isoechoic (1 point). Shape: Wider than tall (0 points). Margin: Smooth (0 points). Echogenic foci: None or large comet-tail artifacts (0 points) Recommendation: If >2.5cm: FNA; If >1.5cm: Follow up at 1,3,5 years ISTHMUS: # of nodules measured in the isthmus: 0 Bilateral neck scanned, no evidence of lymphadenopathy. IMPRESSION: Similar-appearing bilateral thyroid nodules which were previously biopsied.
== END | disposition home or self-care (01) ==
LOC: RADUSWWP 13:01
PROVIDERS: ATTEND Internal Medicine Endocrinology, Diabetes & Metabolism
DX: E04.2 Nontoxic multinodular goiter (principal)
CPT/HCPCS: 76536

== ENCOUNTER → 2024-03-25 | Outpatient (CLI) | payer MEDICARE ==
[2024-03-25 13:58] LABS: African American GFR (CKD) >90 (>60 ml/min/1.73 sqM); Blood Urea Nitrogen 21 mg/dL (7-17); Non-African American GFR(CKD) 79 (>60 ml/min/1.73 sqM)
--- NOTE | 2024-03-25 15:37 | CT ---
CT thoracic spine without contrast HISTORY: Back pain COMPARISON: 11/10/2020. TECHNIQUE: Multiple axial images are obtained through the thoracic spine without contrast material. FINDINGS: There is a mild to moderate compression fracture of T9 which contains vertebroplasty cement. Remainin g thoracic vertebral segments are normal in height and alignment. No new or acute fractures are seen. The disc spaces are well preserved in height. There is no bone compromise of the thoracic spinal canal or of the neural foramina. The paraspinal so ft tissues are unremarkable. IMPRESSION: 1. Status post vertebral plasty of T9. 2. No new fractures or malalignment in the thoracic spine. 3. No significant degenerative disc disease. [facility], , 03/25/2024 3:34 PM
== END | disposition home or self-care (01) ==
LOC: RADCTMAIN 12:45
PROVIDERS: ATTEND Family Medicine
DX: M54.6 Pain in thoracic spine (principal); Z87.81 Personal history of (healed) traumatic fracture
CPT/HCPCS: 82565; 84520; 72129; 36415; Q9967

== ENCOUNTER → 2024-09-11 | Outpatient (CLI) | payer MEDICARE ==
--- NOTE | 2024-09-12 10:56 | NM ---
EXAMINATION TYPE: NM thyroid image w uptake DATE OF EXAM: 09/12/2024 COMPARISON: Thyroid ultrasound 11/13/2023, 11/28/2022, ultrasound FNA 12/29/2022 CLINICAL INDICATION: Female, 89 years old with history of E04.2 NONTOXIC MULTINODULAR GOITER; TECHNIQUE: Thyroid iodine uptake is calculated and images performed after the oral administration of 319 uCi 1-123 Capsule. FINDINGS: There is heterogenous radiotracer uptake throughout the thyroid gland with focal increased radiotracer uptake identified within the left superior thyroid gland. The 4 hour iodine uptake is kalia culated at 5.1% (normal range 8-14%). The 24-hour iodine uptake is calculated at 18% (normal range 15 -35%). IMPRESSION: 1. Iodine thyroid uptake is below the normal range at 4 hours but within the low normal range at 24 hours. Etiologies include rapid iodine turnover, temporary iodine deficiency, thyroiditis, versus oth er etiologies. Correlate clinically. 2. Focal increased radiotracer uptake within the superior left thyroid which may correspond to known thyroid nodule. Suggests hyperfunctioning nodule. [facility], , 09/12/2024 10:54 AM
== END | disposition home or self-care (01) ==
LOC: RADNMMAIN 08:14
PROVIDERS: ATTEND Family Medicine
DX: E04.2 Nontoxic multinodular goiter (principal)
CPT/HCPCS: 78014; A9516